=== PATIENT | male | born 1970 | race Two or more races ===

== ENCOUNTER 2024-07-16 19:49 | Emergency (ER) | payer OTHER ==
[~2024-07-16] VITALS: Ht 162.6 cm; Wt 63.7 kg
[2024-07-16 20:37] VITALS: BP 131/81; PULSE 93; RESP 18; TEMP 98.1; O2SAT 95
--- NOTE | 2024-07-16 20:42 | ED.PDOC ---
Musculoskeletal HPI Comments 54 y.o male with PMHx of bipolar disorder, autism, schizophrenia and leg DVT, presents to the ED for a chief complaint of left lower leg swelling that started 3 days ago. Sister who brought patient in reports that patient had a DVT 3-4 years ago, was placed on blood thinners and then taken off them s/p surgical removal of the blood clot. Patient presents with tenderness and swelling. He denies any fever, chills, or recent trauma to leg. Chief Complaint: Lower Extremity Time Seen by MD: 20:30 Reviewed Notes: Nurses Notes, Medications, Allergies Allergies: Coded Allergies: Haloperidol (Verified Allergy, Unknown, 07/16/24) Information Source: Patient Mode of Arrival: Ambulatory Location: Left Extremity Location: Leg Timing: Days (3) Severity: Moderate Able to Move Extremity: Yes Bear Weight: Limited Pain: Moderate Mechanism: None Circumstances: Spontaneous Onset of Symptoms: Spontaneous Symptoms: Swelling, Pain DVT Risk Factors: DVT Associated signs and symptoms: Swelling, Leg pain Past Medical History PAST MEDICAL HISTORY: Schizophrenia Past Medical History (Other): DVT left leg, bipolar and autism Surgical History (Other): DVT removal Family History Family History: Reviewed,noncontributory to illness Social History Smoker: Non-Smoker Alcohol: Denies ETOH Use Drugs: Denies Drug Use Lives In: Home Constitutional: denies: chills, diaphoresis, fatigue, fever, malaise, sweats, weakness, others EENTM: denies: blurred vision, double vision, ear bleeding, ear discharge, ear drainage, ear pain, ear ringing, eye pain, eye redness, hearing loss, mouth pain, mouth swelling, nasal discharge, nose bleeding, nose congestion, nose pain, photophobia, tearing, throat pain, throat swelling, voice changes, others Respiratory: denies: cough, hemoptysis, orthopnea, SOB at rest, shortness of breath, SOB with excertion, stridor, wheezing, others Cardiovascular: denies: chest pain, dizzy spells, diaphoresis, Dyspnea on exertion, edema, irregular heart beat, left arm pain, lightheadedness, palpitations, PND, syncope, others Gastrointestinal: denies: abdomen distended, abdominal pain, blood streaked bowels, constipated, diarrhea, dysphagia, difficulty swallowing, hematemesis, melena, nausea, poor appetite, poor fluid intake, rectal bleeding, rectal pain, vomiting, others Genitourinary: denies: burning, dysuria, flank pain, frequency, hematuria, incontinence, penile discharge, penile sore, pain, testicle pain, testicle swelling, urgency, others Neurological: denies: dizziness, fainting, headache, left sided numbness, left sided weakness, numbness, paresthesia, pre-existing deficit, right sided numbness, right sided weakness, seizure, speech problems, tingling, tremors, weakness, others Musculoskeletal: reports: others (left leg swelling ); denies: back pain, gout, joint pain, joint swelling, muscle pain, muscle stiffness, neck pain Integumetry: denies: bruises, change in color, change in hair/nails, dryness, laceration, lesions, lumps, rash, wounds, others Allergic/Immunocompromised: denies: Difficulty Healing, Frequent Infections, Hives, Itching, others Hematologic/Lymphatic: denies: anemia, blood clots, easy bleeding, easy bruising, swollen glands, others Endocrine: denies: excessive hunger, excessive sweating, excessive thirst, excessive urination, flushing, intolerance to cold, intolerance to heat, unexplained weight gain, unexplained weight loss, others Psychiatric: denies: anxiety, bipolar disorder, depression, hopeless, panic disorder, schizophrenia, sleepless, suicidal, others All Other Systems: Reviewed and Negative Physical Exam General Appearance: No Apparent Distress, Normal HEENT: Normal ENT Inspection, Pharynx Normal, TMs Normal Neck: Full Range of Motion, Non-Tender, Normal, Normal Inspection Respiratory: Chest Non-Tender, Lungs Clear, No Accessory Muscle Use, No Respiratory Distress, Normal Breath Sounds Cardiovascular: No Edema, No JVD, No Murmur, No Gallop, Normal Peripheral Pulses, Regular Rate/Rhythm Breast Exam: Deferred Gastrointestinal: No Organomegaly, Non Tender, No Pulsatile Mass, Normal Bowel Sounds, Soft Genitalia: Deferred Pelvic: Deferred Rectal: Deferred Extremities: Swelling (left lower extremity ), Tender (left lower extremity ), Other (positive Homans sign with erythema ) Musculoskeletal : Apperance: Normal 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 Was a procedure done?: No Differential Diagnosis EXT Differential Diagnosis: Cellulitis, Deep Vein Thrombosis, Sprain, Gout X-Ray, Labs, Meds, VS Vital Signs Date Time Temp Pulse Resp B/P (MAP) Pulse Ox O2 Delivery O2 Flow Rate FiO2 07/16/24 20:37 98.1 93 18 131/81 (98) 95 98.1 X-Ray, Labs, Meds, VS Comment Imaging: X-rays and CT scans were reviewed and interpreted by this provider, imaging shows no fractures and no pathological disease. Pending radiology review. Laboratory: Labs reviewed and interpreted by this provider. No significant abnormalities noted. Patient has prior medical visits reviewed. Med reconciliation performed Vital signs reviewed Time of 1ST Reevaluation: 20:42 Reevaluation 1ST: Unchanged Patient Education/Counseling: Diagnosis, Treatment, Prognosis, Need For Follow Up (Follow up in the emergency department in the next 24-48 hours if symptoms worsen. It was advised to follow up with your primary care doctor in the next 3-4 days for further evaluation.) Family Education/Counseling: Diagnosis, Treatment, Prognosis Departure 1 Departure Time of Disposition: 23:21 Impression: Primary Impression: Cellulitis of left lower extremity Disposition: 01 HOME / SELF CARE / HOMELESS Condition: Fair e-Prescriptions Cephalexin Monohydrate (Cephalexin) 500 Mg Cap 1 CAP PO TID for 7 Days, #21 CAP Prov: RUPESH MONTOYA 07/16/24 Discharged With: Self Critical Care Note Critical Care Time?: No Stability Stability form required: No I personally scribed for RUPESH MONTOYA ([facility]) on 07/16/24 at 20:42. Electronically submitted by Carol Henley ([facility]). RUPESH MONTOYA Jul 16, 2024 20:42
--- NOTE | 2024-07-16 22:02 | DVH ---
Left lower extremity venous duplex Clinical History: leg swelling Comparison: None Technique: Duplex Doppler evaluation of the deep venous system of the left lower extremity from the common femor al vein to the popliteal vein including color Doppler and spectral/pulsed waveform analysis was perfo rmed. Findings: The common femoral vein demonstrates appropriate compressibility and waveform variability. There is compressibility/patency of the great saphenous vein at the proximal thigh. The femoral vein demonstrates appropriate compressibility and waveform variability. The deep femoral vein demonstrates appropriate compressibility and waveform variability. The popliteal vein demonstrates appropriate compressibility and waveform variability. There is normal compressibility at the tibioperoneal trunk. Impression: No evidence of left femoropopliteal venous thrombosis.
[2024-07-16] MEDS ORDERED: CEPH500C PO (23:22)
== END 2024-07-17 02:45 | disposition home or self-care (01) ==
LOC: ER 19:49
DX: L03.116 Cellulitis of left lower limb (principal); F20.9 Schizophrenia, unspecified; F31.9 Bipolar disorder, unspecified; F84.0 Autistic disorder; Z86.718 Personal history of other venous thrombosis and embolism
CPT/HCPCS: 93971

== ENCOUNTER 2024-08-28 15:53 | Inpatient (IN) | payer MEDICARE, OTHER ==
[~2024-08-28] VITALS: Ht 165.1 cm; Wt 70.0 kg
[~2024-08-28 15:53] MED LIST: CEPH500C PO
--- NOTE | 2024-08-28 16:39 | ED.PDOC ---
Pediatric Illness HPI Chief Complaint: Overdose Time Seen by MD: 16:35 Primary Care Provider: NONE Allergies: Coded Allergies: Haloperidol (Verified Allergy, Unknown, 07/16/24) Home Meds Active Scripts Cephalexin Monohydrate (Cephalexin) 500 Mg Cap, 1 CAP PO TID for 7 Days, #21 CAP Prov:RUPESH MONTOYA 07/16/24 Mode of Arrival: EMS Family History Family History: Reviewed,noncontributory to illness Social History Smoking: Non-Smoker Alcohol: Denies ETOH Use Drugs: Denies Drug Use Lives In: Home X-Ray, Labs, Meds, VS Vital Signs Date Time Temp Pulse Resp B/P (MAP) Pulse Ox O2 Delivery O2 Flow Rate FiO2 08/28/24 16:14 98.3 96 18 162/102 (122) 98 98.3 08/28/24 16:04 98.3 96 18 162/102 (122) 98 98.3 Lab Test 08/28/24 16:32 Range/Units White Blood Count Pending Red Blood Count Pending Hemoglobin Pending Hematocrit Pending Mean Corpuscular Volume Pending Mean Corpuscular Hemoglobin Pending Mean Corpuscular Hemoglobin Concent Pending Red Cell Distribution Width Pending Platelet Count Pending Mean Platelet Volume Pending Neutrophils (%) (Auto) Pending Lymphocytes (%) (Auto) Pending Monocytes (%) (Auto) Pending Basophils (%) (Auto) Pending Neutrophils # (Auto) Pending Lymphocytes # (Auto) Pending Monocytes # (Auto) Pending Sodium Level Pending Potassium Level Pending Chloride Level Pending Carbon Dioxide Level Pending Anion Gap Pending Blood Urea Nitrogen Pending Creatinine Pending Glomerular Filtration Rate Calc Pending BUN/Creatinine Ratio Pending Serum Glucose Pending Calcium Level Pending Salicylates Level Pending Acetaminophen Level Pending Plasma/Serum Blood Alcohol Pending Time of 1ST Reevaluation: 17:05 Reevaluation 1ST: Unchanged Patient Education/Counseling: Diagnosis, Treatment Family Education/Counseling: No Family Present Critical Care Note Critical Care Time?: No Stability Stability form required: No I personally scribed for PAMELA BARROW MD ([email or web address]) on 08/28/24 at 16:39. Electronically submitted by Chiqui Amaya ([email or web address]). I personally scribed for PAMELA BARROW MD ([email or web address]) on 08/28/24 at 16:41. Electronically submitted by Chiqui Amaya ([email or web address]). PAMELA BARROW MD Aug 28, 2024 16:39
[2024-08-28 16:42] LABS: Basophils # (auto) 0 10 ^3/uL (0-0.2); Basophils % (auto) 0.1 % (0.0-2.0); Eosinophils # (auto) 0 10 ^3/uL (0-0.8); Eosinophils % (auto) 0.1 % (0.0-7.0); Hematocrit 41.8 % (41.0-53.0); Hemoglobin 14.1 g/dL (13.5-17.5); Lymphocytes # (auto) 0.4 10 ^3/uL (0.4-5.4); Lymphocytes % (auto) 2.3 % (10.0-50.0); Mean Corpuscular Hemoglobin 27.7 pg (28.0-32.0); Mean Corpuscular Hgb Conc. 33.6 g/dL (32.0-36.0); Mean Corpuscular Volume 82.3 fL (80.0-100.0); Monocytes # (auto) 1.1 10 ^3/uL (0-1.3); Neutrophils % (auto) 91.5 % (37.0-80.0); Nucleated Red Blood Cells % 0.2 %; Platelet Count (auto) 289 10^3/uL (140-450); Red Blood Cells 5.09 10^6/uL (4.5-5.90); Red Cell Distribution Width 13.4 % (11.8-14.3); White Blood Cell 18.6 10^3/uL (4.4-10.8)
--- NOTE | 2024-08-28 16:44 | ED.PDOC ---
Psychiatric HPI Comments 54 y/o M with PMHx of schizophrenia, KATHYA, presents to the ED for CC of overdose. EMS reports, patient is coming from home s/p suicidal attempt through overdose on Prozac 40mg x2 tablets, Lisinopril 5mg x4 tablets, BuSpar 10mg X5 tablets, Xanax x1 tablet, and Risperdal 50mg x1 tablet. EMS relays, patient had a witnessed syncopal episode following ingestion resulting in him falling forward and hitting his face. Upon arrival to the ED, patient has visible abrasions to nose and forehead. Patient comments, on previous suicidal attempts in the past. Patient denies LOC, auditory hallucinations, visual hallucinations, or homicidal ideation. No other symptoms or modifying factors present at this time. Chief Complaint: Overdose Time Seen by MD: 16:35 Primary Care Provider: NONE Reviewed Notes: Nurses Notes, Medications, Allergies Mode of Arrival: EMS Severity: Unable to Care for Self Severity of Pain: None Severity of Mental Status: Moderate Severity of Symptoms: Moderate Timing: Minutes Duration: Since onset Prehospital treatment: None Presents with: Suicidal Ideation Attempt: Ingestion Ingestion: Multiple Circumstance: None Current substance abuse: Other (medications) Stressors: None History of: Schizophrenia, Suicidal Attempt Quality: None Associated signs and symptoms: None Past Medical History PAST MEDICAL HISTORY: Schizophrenia Family History Family History: Reviewed,noncontributory to illness Social History Smoker: Non-Smoker Alcohol: Denies ETOH Use Drugs: Denies Drug Use Lives In: Home Constitutional: denies: chills, diaphoresis, fatigue, fever, malaise, sweats, weakness, others EENTM: denies: blurred vision, double vision, ear bleeding, ear discharge, ear drainage, ear pain, ear ringing, eye pain, eye redness, hearing loss, mouth pain, mouth swelling, nasal discharge, nose bleeding, nose congestion, nose pain, photophobia, tearing, throat pain, throat swelling, voice changes, others Respiratory: denies: cough, hemoptysis, orthopnea, SOB at rest, shortness of breath, SOB with excertion, stridor, wheezing, others Cardiovascular: denies: chest pain, dizzy spells, diaphoresis, Dyspnea on exertion, edema, irregular heart beat, left arm pain, lightheadedness, palpitations, PND, syncope, others Gastrointestinal: denies: abdomen distended, abdominal pain, blood streaked bowels, constipated, diarrhea, dysphagia, difficulty swallowing, hematemesis, melena, nausea, poor appetite, poor fluid intake, rectal bleeding, rectal pain, vomiting, others Genitourinary: denies: burning, dysuria, flank pain, frequency, hematuria, incontinence, penile discharge, penile sore, pain, testicle pain, testicle swel ling, urgency, others Neurological: denies: dizziness, fainting, headache, left sided numbness, left sided weakness, numbness, paresthesia, pre-existing deficit, right sided numbness, right sided weakness, seizure, speech problems, tingling, tremors, weakness, others Musculoskeletal: denies: back pain, gout, joint pain, joint swelling, muscle pain, muscle stiffness, neck pain, others Integumetry: denies: bruises, change in color, change in hair/nails, dryness, laceration, lesions, lumps, rash, wounds, others Allergic/Immunocompromised: denies: Difficulty Healing, Frequent Infections, Hives, Itching, others Hematologic/Lymphatic: denies: anemia, blood clots, easy bleeding, easy bruising, swollen glands, others Endocrine: denies: excessive hunger, excessive sweating, excessive thirst, excessive urination, flushing, intolerance to cold, intolerance to heat, unexplained weight gain, unexplained weight loss, others Psychiatric: reports: suicidal; denies: anxiety, bipolar disorder, depression, hopeless, panic disorder, schizophrenia, sleepless, others All Other Systems: Reviewed and Negative Physical Exam General Appearance: No Apparent Distress, Normal HEENT: Normal ENT Inspection, Pharynx Normal Neck: Full Range of Motion, Non-Tender, Normal, Normal Inspection Respiratory: Chest Non-Tender, Lungs Clear, No Accessory Muscle Use, No Respiratory Distress, Normal Breath Sounds Cardiovascular: No Edema, No Murmur, No Gallop, Normal Peripheral Pulses, Regular Rate/Rhythm Breast Exam: Deferred Gastrointestinal: No Organomegaly, Non Tender, No Pulsatile Mass, Normal Bowel Sounds, Soft Genitalia: Deferred Pelvic: Deferred Rectal: Deferred Extremities: No calf tenderness, Normal capillary refill, Normal inspection, Normal range of motion, Non-tender, No pedal edema Musculoskeletal : Apperance: Normal 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 Was a procedure done?: No Psych Differential Dx Psych. Differential Dx: Schizoprenia, Suicidal Suicidal Differential Dx: Anxiety, Bipolar Disorder, Depression X-Ray, Labs, Meds, VS Vital Signs Date Time Temp Pulse Resp B/P (MAP) Pulse Ox O2 Delivery O2 Flow Rate FiO2 08/28/24 16:14 98.3 96 18 162/102 (122) 98 98.3 08/28/24 16:04 83 08/28/24 16:04 98.3 96 18 162/102 (122) 98 98.3 Lab Test 08/28/24 16:32 Range/Units White Blood Count 18.6 H 4.4-10.8 10^3/uL Red Blood Count 5.09 4.5-5.90 10^6/uL Hemoglobin 14.1 13.5-17.5 g/dL Hematocrit 41.8 41.0-53.0 % Mean Corpuscular Volume 82.3 80.0-100.0 fL Mean Corpuscular Hemoglobin 27.7 L 28.0-32.0 pg Mean Corpuscular Hemoglobin Concent 33.6 32.0-36.0 g/dL Red Cell Distribution Width 13.4 11.8-14.3 % Platelet Count 289 140-450 10^3/uL Mean Platelet Volume 7.2 6.9-10.8 fL Neutrophils (%) (Auto) 91.5 H 37.0-80.0 % Lymphocytes (%) (Auto) 2.3 L 10.0-50.0 % Monocytes (%) (Auto) 6.0 0.0-12.0 % Eosinophils (%) (Auto) 0.1 0.0-7.0 % Basophils (%) (Auto) 0.1 0.0-2.0 % Neutrophils # (Auto) 17.0 H 1.6-8.6 10 ^3/uL Lymphocytes # (Auto) 0.4 0.4-5.4 10 ^3/uL Monocytes # (Auto) 1.1 0-1.3 10 ^3/uL Eosinophils # (Auto) 0 0-0.8 10 ^3/uL Basophils # (Auto) 0 0-0.2 10 ^3/uL Nucleated Red Blood Cells 0.2 % Sodium Level 150 H 136-145 mmol/L Potassium Level 3.7 3.5-5.1 mmol/L Chloride Level 111 H 98-107 mmol/L Carbon Dioxide Level 31 20-31 mmol/L Anion Gap 8 5-15 Blood Urea Nitrogen 18 9-23 mg/dL Creatinine 1.19 0.700-1.30 mg/dL Glomerular Filtration Rate Calc 73 >90 mL/min BUN/Creatinine Ratio 15.1 10.0-20.0 Serum Glucose 105 74-106 mg/dL Calcium Level 10.8 H 8.7-10.4 mg/dL Salicylates Level < 3.0 -30 mg/dL Acetaminophen Level < 2.0 L 10.0-20.0 UG/ML Plasma/Serum Blood Alcohol 3.2 <10 mg/dL Time of 1ST Reevaluation: 17:05 Reevaluation 1ST: Unchanged Patient Education/Counseling: Diagnosis, Treatment Family Education/Counseling: No Family Present Departure 1 Departure Time of Disposition: 17:39 (Patient with syncopal episode following medication overdose with a suicide attempt. After discussing with poison control and be in the best interest the patient to be admitted medically until once cleared after 24 hours. We will have patient for further workup and expert consultation) Impression: Primary Impression: Syncope and collapse Additional Impressions: Deliberate medication overdose Qualified Codes: T50.902A - Poisoning by unspecified drugs, medicaments and biological substances, intentional self-harm, initial encounter Suicide ideation Schizophrenia Qualified Codes: F20.9 - Schizophrenia, unspecified Disposition: 09 ADMITTED INPATIENT Admit to: Med Surg Condition: Guarded Critical Care Note Critical Care Time?: Yes Critical care comment: Overdose Authorized and Performed by: Pamela Pearson MD Total critical care time: Approximately 43 minutes Due to a high probability of clinically significant, life threatening deterioration, the patient required my highest level of preparedness to intervene emergently and I personally spent this critical care time directly and personally managing the patient. This critical care time included obtaining a history; examining the patient; pulse oximetry; ordering and review of studies; arranging urgent treatment with development of a management plan; evaluation of patient's response to treatment; frequent reassessment; and, discussions with other providers. This critical care time was performed to assess and manage the high probability of imminent, life-threatening deterioration that could result in multi-organ failure. It was exclusive of separately billable procedures and treating other patients and teaching time. Please see my other sections and the rest of the note for further information on patient assessment and treatment. Stability Stability form required: No Heart Score Heart Score: Heart Score Response (Comments) Value History N/A 0 EKG N/A 0 Age N/A 0 Risk Factors N/A 0 Troponin N/A 0 Total 0 I personally scribed for PAMELA PEARSON MD ([email or web address]) on 08/28/24 at 16:44. Electronically submitted by Chiqui Amaya ([email or web address]). PAMELA PEARSON MD Aug 28, 2024 16:44
[2024-08-28 16:48] LABS: Potassium 3.7 mmol/L (3.5-5.1)
[2024-08-28 16:49] LABS: Anion Gap 8 (5-15); Carbon Dioxide 31 mmol/L (20-31)
[2024-08-28 16:55] LABS: BUN/Creatinine Ratio 15.1 (10.0-20.0); Blood Alcohol 3.2 mg/dL (<10); Blood Urea Nitrogen 18 mg/dL (9-23); Glucose 105 mg/dL (74-106)
[2024-08-28 16:57] LABS: Sodium 150 mmol/L (136-145)
[2024-08-28 16:58] LABS: Calcium 10.8 mg/dL (8.7-10.4); Chloride 111 mmol/L (98-107)
[2024-08-28 16:59] LABS: Acetaminophen < 2.0 UG/ML (10.0-20.0); Salicylate < 3.0 mg/dL (-30)
--- NOTE | 2024-08-28 18:05 | DVH ---
CHEST RADIOGRAPH Indication: syncope Technique: Single frontal view of the chest was obtained COMPARISON: None FINDINGS: Lines and Tubes: None Lungs: Clear Pleura: No effusion. No pneumothorax. Cardiomediastinal contours: Cardiomegaly Bones: Unremarkable IMPRESSION: No acute disease.
--- NOTE | 2024-08-28 18:08 | DVH ---
EXAM: CT HEAD WITHOUT CONTRAST INDICATION: syncope TECHNIQUE: CT of the head without intravenous contrast. Radiation Dose : 1. Head: CT Dose: CTDI volume is 57 mGy. Dose-length product is 1012 mGy*cm The dose indicators for CT are the volume Computed Tomography (CT) Dose Index (CTDIvol) and the Dose Length Product (DLP), and are measured in units of mGy and mGy-cm, respectively. These indicators are not patient dose, but values generated from the CT scanner acquisition factors. The report includes radiation exposure data for exposures received during this examination. COMPARISON: None FINDINGS: There is no evidence of acute intracranial hemorrhage, extra-axial collection, mass effect, midline s hift, herniation or hydrocephalus. The ventricles, sulci and cisterns are age appropriate. The corona-white differentiation is intact. Patchy periventricular and subcortical white matter hypoattenuation is nonspecific but may be related to small vessel ischemic disease. The visualized paranasal sinuses and mastoid air cells are clear. The surrounding soft tissues and osseous structures are unremarkable. IMPRESSION: 1. No acute intracranial abnormality. Radiation optimization: All CT scans at this facility use at least one of these dose optimization chadd hniques: automated exposure control mA and/or kV adjustment per patient size (includes targeted exam s where dose is matched to clinical indication) or iterative reconstruction.
[2024-08-28] MEDS: SODIUM CHLORIDE 0.9% 1,000 ML IV ONE (18:13)
[2024-08-28 18:31] VITALS: PULSE 83; RESP 17; O2SAT 96
[2024-08-28 19:52] LABS: Urine Bacteria FEW /hpf (None Seen); Urine Blood 3+ /uL (Negative); Urine Clarity Clear (Clear); Urine Color Light-Yellow (Yellow); Urine Protein, UAD TRACE (Negative); Urine Specific Gravity 1.015 (1.001-1.035); Urine Sperm PRESENT /hpf (None Seen); Urine Squamous Epithelial Cell FEW /hpf (<5); Urine Urobilinogen Normal (Negative); Urine WBC 1 /HPF (0-3)
[2024-08-28 20:04] LABS: Amphetamine Screen, Urine Neg (NEGATIVE); Barbiturate Scree,Urine Neg (NEGATIVE); Benzodiazephine Screen, Urine Neg (NEGATIVE); Cannabinoid Screen, Urine Neg (NEGATIVE); Cocaine Screen, Urine Neg (NEGATIVE); Opiate Scree,Urine Neg (NEGATIVE); Phencyclidine Screen, Urine Neg (NEGATIVE)
[2024-08-28 20:30] VITALS: PULSE 77; RESP 14; O2SAT 93
[2024-08-28] MEDS: D5W/SOD CHL 0.45% 1,000 ML IV SCH (21:32)
[2024-08-28 21:57] LABS: Albumin 4.1 g/dL (3.2-4.8); Alkaline Phosphatase 78 U/L (46-116); Anion Gap 9 (5-15); BUN/Creatinine Ratio 15.4 (10.0-20.0); Bilirubin, Total 0.5 mg/dL (0.2-1.0); Blood Urea Nitrogen 18 mg/dL (9-23); Calcium 10.1 mg/dL (8.7-10.4); Carbon Dioxide 30 mmol/L (20-31)
[2024-08-28 21:59] LABS: Alanine Aminotransferase 57 U/L (7-40); Aspartate Aminotransferase 83 U/L (13-40); Chloride 111 mmol/L (98-107); Glucose 118 mg/dL (74-106); Potassium 3.4 mmol/L (3.5-5.1); Sodium 150 mmol/L (136-145)
[2024-08-29] VITALS (15 sets, daily range): BP systolic 149–174; BP diastolic 92–115; PULSE 65–89; RESP 13–24; TEMP 98.2–98.6; O2SAT 93–98
[2024-08-29] MEDS: POTASSIUM EFFERVESENT TAB 25 MEQ PO ONE (01:57)
[2024-08-29] MEDS: KETOROLAC TROMETH 30 MG/ML 1ML VIAL IV ONE ×2 (01:57→05:17)
--- NOTE | 2024-08-29 04:16 | DVHHP2 ---
Admitting Diagnosis: OD, suicidal attempt, Hypernatremia, syncope History of Present Illness History Source: Patient Exam Limitations: No limitations HPI Mr. Declan Ayala is a 54 year old male with a history of schizophrenia who presents with a chief complaint of overdose with suicidal attempt through overdose, due to an argument he had with his sister, patient reported taking Prozac 40mg x2 tablets, Lisinopril 5mg x4 tablets, BuSpar 10mg X5 tablets, Xanax x1 tablet, and Risperdal 50mg x1 tablet. EMS reported patient had a witnessed syncopal episode following ingestion resulting in him falling forward and hitting his face with associated abrasions to bilateral upper and lower extremities and facial abrasions. Patient denies LOC, auditory hallucinations, visual hallucinations, or homicidal ideation. He does endorse he continues to have suicidal ideation. No other symptoms or modifying factors present at this time. Patient admitted for further evaluation and close monitoring. Home Meds Active Scripts Cephalexin Monohydrate (Cephalexin) 500 Mg Cap, 1 CAP PO TID for 7 Days, #21 CAP Prov:RUPESH MONTOYA 07/16/24 Past Medical History Cardiac: No pertinent Hx Pulmonary: No pertinent Hx Central Nervous System: No pertinent Hx GI: No pertinent Hx Hemotology/Oncology: No pertinent Hx Hepatobiliary: No pertinent Hx Psychiatric: Schizophrenia, Other (suicidal attempts in past) Musculoskeletal: No pertinent Hx Rheumotologic: No pertinent Hx Infectious Disease: No peritnent Hx ENT: No pertinent Hx Renal/: No pertinent Hx Endocrine: No pertinent Hx Dermatology: No pertinent Hx Smoker: No Hx (Negative) Alocohol: None Drugs: None Lives with: With family Domestic Violence: Neg Review of Systems Psychiatric: Other (suicidal ideation) All Other Systems generalized body pain from syncopal fall H&P Exam Vital Signs Vital Signs Date Time Temp Pulse Resp B/P (MAP) Pulse Ox O2 Delivery O2 Flow Rate FiO2 08/29/24 04:00 67 08/28/24 22:34 13 162/106 (124) 96 08/28/24 20:30 97.9 97.9 08/28/24 18:31 Room Air* 0 21 General Appeara: Well developed, Well nourished, Normal Appearance Head Exam: Other (frontal abrasion) Neck Exam: Normal inspection, Non-tender, Normal alignment Eye Exam: bilateral eye Normal inspection, bilateral eye PERRL, bilateral eye EOMI Ear Exam: bilateral ear Auricle normal Nasal Exam: Normal inspection, Dried blood (nasal abrasion) Mouth: Normal Inspection Pulmonary/Respiratory: Normal inspection, Normal breath sounds, Chest non- tender, Lungs clear Cardiovascular/Chest: Normal inspection, Regular rate, Normal Rhythm Peripheral Pulses: 2+ dorsalis pedis (R), 2+ dorsalis pedis (L), 2+ Radial (R), 2+ Radial (L) Abdominal Exam: Normal bowel sounds, Soft, No tenderness Rectal Exam: Deferred Back Exam: Normal inspection Elbow/Forearm Exam: Abrasions Legs: bilateral leg abrasions Knees: bilateral knee other (abrasions) 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 Exam: Normal hearing, Normal speech, PERRL Motor/Sensory: Normal sensory function, Normal motor function Neuro/Mental St: Alert, Oriented Eye contact/ Speech: Cooperative, Good eye contact, Normal speech Thoughts/Psych: Other (suicidal ideation) Skin Exam: Other (multiple abrasions ) Wounds facial abrasions s/p syncopal fall, bilateral upper and lower extremity abrasions Labs/Xrays Labs Test 08/28/24 21:08 08/28/24 19:30 08/28/24 16:32 Range/Units Sodium Level 150 H 136-145 mmol/L Potassium Level 3.4 L 3.5-5.1 mmol/L Chloride Level 111 H 98-107 mmol/L Carbon Dioxide Level 30 20-31 mmol/L Anion Gap 9 5-15 Blood Urea Nitrogen 18 9-23 mg/dL Creatinine 1.17 0.700-1.30 mg/dL Glomerular Filtration Rate Calc 75 >90 mL/min BUN/Creatinine Ratio 15.4 10.0-20.0 Serum Glucose 118 H 74-106 mg/dL Calcium Level 10.1 8.7-10.4 mg/dL Magnesium Level 2.0 1.6-2.6 mg/dL Total Bilirubin 0.5 0.2-1.0 mg/dL Aspartate Amino Transferase (AST) 83 H 13-40 U/L Alanine Aminotransferase (ALT) 57 H 7-40 U/L Alkaline Phosphatase 78 46-116 U/L Total Protein 7.0 5.7-8.2 g/dL Albumin 4.1 3.2-4.8 g/dL Urine Color Light-yellow Yellow Urine Clarity Clear Clear Urine pH 7.0 5.0-9.0 Urine Specific [place] 1.015 1.001-1.035 Urine Protein Trace H Negative Urine Ketones Negative Negative Urine Blood 3+ H Negative /uL Urine Nitrite Negative Negative Urine Bilirubin Negative Negative Urine Urobilinogen Normal Negative mg/dL Urine Leukocyte Esterase Negative Negative /uL Urine RBC 1 0 - 3 /hpf Urine Microscopic WBC 1 0-3 /HPF Urine Squamous Epithelial Cells Few <5 /hpf Urine Bacteria Few H None Seen /hpf Urine Sperm Present None Seen /hpf Urine Glucose Normal Normal mg/dL Urine Opiates Screen Neg NEGATIVE Urine Fentanyl Screen Neg NEGATIVE Urine Barbiturates Screen Neg NEGATIVE Urine Phencyclidine Screen Neg NEGATIVE Urine Amphetamines Screen Neg NEGATIVE Urine Benzodiazepines Screen Neg NEGATIVE Urine Cocaine Screen Neg NEGATIVE Urine Cannabinoids Screen Neg NEGATIVE White Blood Count 18.6 H 4.4-10.8 10^3/uL Red Blood Count 5.09 4.5-5.90 10^6/uL Hemoglobin 14.1 13.5-17.5 g/dL Hematocrit 41.8 41.0-53.0 % Mean Corpuscular Volume 82.3 80.0-100.0 fL Mean Corpuscular Hemoglobin 27.7 L 28.0-32.0 pg Mean Corpuscular Hemoglobin Concent 33.6 32.0-36.0 g/dL Red Cell Distribution Width 13.4 11.8-14.3 % Platelet Count 289 140-450 10^3/uL Mean Platelet Volume 7.2 6.9-10.8 fL Neutrophils (%) (Auto) 91.5 H 37.0-80.0 % Lymphocytes (%) (Auto) 2.3 L 10.0-50.0 % Monocytes (%) (Auto) 6.0 0.0-12.0 % Eosinophils (%) (Auto) 0.1 0.0-7.0 % Basophils (%) (Auto) 0.1 0.0-2.0 % Neutrophils # (Auto) 17.0 H 1.6-8.6 10 ^3/uL Lymphocytes # (Auto) 0.4 0.4-5.4 10 ^3/uL Monocytes # (Auto) 1.1 0-1.3 10 ^3/uL Eosinophils # (Auto) 0 0-0.8 10 ^3/uL Basophils # (Auto) 0 0-0.2 10 ^3/uL Nucleated Red Blood Cells 0.2 % Salicylates Level < 3.0 -30 mg/dL Acetaminophen Level < 2.0 L 10.0-20.0 UG/ML Plasma/Serum Blood Alcohol 3.2 <10 mg/dL Assessment/Plan Problem List: (1) Deliberate medication overdose (2) Suicide ideation (3) Syncope and collapse (4) Schizophrenia Plan This is a 54 yo male with history of SI, Schizophrenia who presents to the hospital status post intentional overdose with suicidal attempt, syncopal episode. Poison control was called by ED and recommendation for 24 hour close monitoring. 1. Intentional Overdose 2. Suicidal ideation with attempt 3. Syncopal episode 4. Hypernatremia 5. Schizophrenia Plan Admit [facility] Tele Psych consultation, safety analyst at bedside 1:1 Serial BMP's, Mg level, serial EKG's Nephrology consultation, IVF D5 1/2 NS Cardiology consultation, 2D echocardiogram Discussed all above with patient who verbalizes agreement and understanding of care plan. All questions were answered. Discussed with supervising MD. Plan discussed with: Patient, Other Code Visit Code Visit Total Time (mins): 45 Additional Comments Additional Comments Additional Comments Patient's chart is reviewed and discussed with the nurse practitioner. Patient seen evaluated by [employer] ADMINISTRATOR overnight. This morning I was notified by on-call [employer] rn case manager that patient is not with the [facility] insurance. Therefore patient care is transferred to [facility] given they will be taking care of the patient. Therefore patient carries transferred to them and discussed with Dr. Feliz. IMANI THOMASON Aug 29, 2024 04:16 SHUN PARKINSON MD Aug 29, 2024 11:29
[2024-08-29 05:43] LABS: Basophils # (auto) 0 10 ^3/uL (0-0.2); Basophils % (auto) 0.2 % (0.0-2.0); Eosinophils # (auto) 0 10 ^3/uL (0-0.8); Eosinophils % (auto) 0.1 % (0.0-7.0); Hemoglobin 14.1 g/dL (13.5-17.5); Lymphocytes # (auto) 1.4 10 ^3/uL (0.4-5.4); Lymphocytes % (auto) 10.6 % (10.0-50.0); Mean Corpuscular Hemoglobin 27.8 pg (28.0-32.0); Mean Corpuscular Hgb Conc. 33.7 g/dL (32.0-36.0); Mean Corpuscular Volume 82.5 fL (80.0-100.0); Monocytes % (auto) 7.9 % (0.0-12.0); Neutrophils # (auto) 10.5 10 ^3/uL (1.6-8.6); Neutrophils % (auto) 81.2 % (37.0-80.0); Platelet Count (auto) 308 10^3/uL (140-450); Red Blood Cells 5.09 10^6/uL (4.5-5.90); Red Cell Distribution Width 13.7 % (11.8-14.3)
[2024-08-29 05:50] LABS: Carbon Dioxide 28 mmol/L (20-31); Chloride 105 mmol/L (98-107); Potassium 3.9 mmol/L (3.5-5.1); Sodium 142 mmol/L (136-145)
[2024-08-29 05:51] LABS: Anion Gap 9 (5-15); Calcium 9.5 mg/dL (8.7-10.4)
[2024-08-29 05:56] LABS: BUN/Creatinine Ratio 13.8 (10.0-20.0); Blood Urea Nitrogen 12 mg/dL (9-23); Glucose 101 mg/dL (74-106)
--- NOTE | 2024-08-29 06:46 | ECG ---
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
--- NOTE | 2024-08-29 09:35 | DVHINCON2 ---
Date Seen: Aug 29, 2024 Referring Physician SASCHA Moyer Reason for Consultation Prolonged QTc, s/p OD, Syncope History of Present Illness A 54-year-old male patient who presents to the emergency room status post medication overdose. The patient reports that on the day of emergency room arr ival, he had gotten into an argument with his sister earlier in the day over a cell phone. He reports that the argument became so heated and he became upset, that he began to have suicidal ideations. He acted upon this thoughts and admits to taking at least five pills each of the following medications: Lisinopril, Prozac, BuSpar, and Geodon. He states that shortly thereafter he went outside to get a package from his front yard and began to feel dizzy and the next thing he remembers is waking up on the ground. He reports crawling back inside of the house where he was able to regain some strength to stand up and proceeded to fall another 3 times, without losing consciousness. When the patient arrived to the emergency room, poison control was called and r ecommendations were followed by ER physician. Initial twelve lead electrocardiogram reveals normal sinus rhythm with left ventricular hypertrophy and prolonged QTc interval at 512. The patient denies any cardiac symptoms. Significant past medical history includes hypertension, dyslipidemia, bipolar, depression, schizophrenia, autism, and benign prostatic hyperplasia. Past Medical History Past medical history reviewed. No other significant than mentioned above. Past Surgical History Denies any previous surgeries Family History Family history reviewed. Social History Patient reports that he used to vape, quit approximately one year ago Denies any illicit drug use Denies any alcohol use Allergies: Coded Allergies: Haloperidol (Verified Allergy, Unknown, 07/16/24) Uncoded Allergies: red dye (Allergy, Intermediate, RASH, 08/29/24) PER SISTER MARTÍNEZ Home Meds Active Scripts Cephalexin Monohydrate (Cephalexin) 500 Mg Cap, 1 CAP PO TID for 7 Days, #21 CAP Prov:RUPESH MONTOYA 07/16/24 Home Meds Home medications reviewed. Current Medications Current Medications Medications (Trade) Dose Ordered Sig/Jacklyn Route PRN Reason Start Time Stop Time Status Last Admin Dextrose/Sodium Chloride 1,000 ml @ 125 mls/hr Q8H IV 08/28/24 20:45 08/29/24 04:45 Review of Systems Constitutional: Generalized weakness Ears, Nose, & Throat: No symptom reported Eyes: No symptom reported Neurological: Syncope Pulmonary/Respiratory: No symptoms reported Cardiovascular: No symptom reported Gastrointestinal: No symptom reported Genitourinary: No symptom reported Musculoskeletal: No symptom reported Skin: No symptom reported Psychiatric: No symptom reported Endocrine: No symptom reported Hematologic/Lymphatic: No symptom reported Vital Signs Vital Signs Date Time Temp Pulse Resp B/P (MAP) Pulse Ox O2 Delivery O2 Flow Rate FiO2 08/29/24 08:00 81 08/29/24 06:30 13 162/102 (122) 95 08/28/24 20:30 97.9 97.9 08/28/24 20:30 Room Air* 0 21 Physical Exam General Appearance: Cooperative. Well-developed. Well-nourished. No acute distress. Pulmonary/Respiratory: Clear, bilateral breaths sounds. Cardiovascular/Chest: Regular rate and rhythm. Peripheral Pulses: 2+ Radial (R). 2+ Radial (L). 2+ Pedal (R). 2+ Pedal (L) Abdominal Exam: Normal bowel sounds. Ankle Exam: Negative ankle edema Lower extremities: Negative lower extremity edema Neuro/Mental Status: A/OX4, coherent. Thoughts/Psych: Normal thought pattern. Appropriate mood and affect. Good judgment and insight. Appearance: No acute distress. Skin Exam: Multiple abrasions to right forehead, lip, bilateral arms and bilateral knee use Labs/Diagnostic Data Labs Test 08/29/24 04:55 08/28/24 21:08 08/28/24 19:30 08/28/24 16:32 Range/Units White Blood Count 13.0 #H 4.4-10.8 10^3/uL Red Blood Count 5.09 4.5-5.90 10^6/uL Hemoglobin 14.1 13.5-17.5 g/dL Hematocrit 42.0 41.0-53.0 % Mean Corpuscular Volume 82.5 80.0-100.0 fL Mean Corpuscular Hemoglobin 27.8 L 28.0-32.0 pg Mean Corpuscular Hemoglobin Concent 33.7 32.0-36.0 g/dL Red Cell Distribution Width 13.7 11.8-14.3 % Platelet Count 308 140-450 10^3/uL Mean Platelet Volume 7.6 6.9-10.8 fL Neutrophils (%) (Auto) 81.2 H 37.0-80.0 % Lymphocytes (%) (Auto) 10.6 10.0-50.0 % Monocytes (%) (Auto) 7.9 0.0-12.0 % Eosinophils (%) (Auto) 0.1 0.0-7.0 % Basophils (%) (Auto) 0.2 0.0-2.0 % Neutrophils # (Auto) 10.5 H 1.6-8.6 10 ^3/uL Lymphocytes # (Auto) 1.4 0.4-5.4 10 ^3/uL Monocytes # (Auto) 1.0 0-1.3 10 ^3/uL Eosinophils # (Auto) 0 0-0.8 10 ^3/uL Basophils # (Auto) 0 0-0.2 10 ^3/uL Nucleated Red Blood Cells 0.0 % Sodium Level 142 # 136-145 mmol/L Potassium Level 3.9 3.5-5.1 mmol/L Chloride Level 105 98-107 mmol/L Carbon Dioxide Level 28 20-31 mmol/L Anion Gap 9 5-15 Blood Urea Nitrogen 12 9-23 mg/dL Creatinine 0.87 0.700-1.30 mg/dL Glomerular Filtration Rate Calc 103 >90 mL/min BUN/Creatinine Ratio 13.8 10.0-20.0 Serum Glucose 101 74-106 mg/dL Calcium Level 9.5 8.7-10.4 mg/dL Magnesium Level 2.0 1.6-2.6 mg/dL Total Bilirubin 0.5 0.2-1.0 mg/dL Aspartate Amino Transferase (AST) 83 H 13-40 U/L Alanine Aminotransferase (ALT) 57 H 7-40 U/L Alkaline Phosphatase 78 46-116 U/L Total Protein 7.0 5.7-8.2 g/dL Albumin 4.1 3.2-4.8 g/dL Urine Color Light-yellow Yellow Urine Clarity Clear Clear Urine pH 7.0 5.0-9.0 Urine Specific [place] 1.015 1.001-1.035 Urine Protein Trace H Negative Urine Ketones Negative Negative Urine Blood 3+ H Negative /uL Urine Nitrite Negative Negative Urine Bilirubin Negative Negative Urine Urobilinogen Normal Negative mg/dL Urine Leukocyte Esterase Negative Negative /uL Urine RBC 1 0 - 3 /hpf Urine Microscopic WBC 1 0-3 /HPF Urine Squamous Epithelial Cells Few <5 /hpf Urine Bacteria Few H None Seen /hpf Urine Sperm Present None Seen /hpf Urine Glucose Normal Normal mg/dL Urine Opiates Screen Neg NEGATIVE Urine Fentanyl Screen Neg NEGATIVE Urine Barbiturates Screen Neg NEGATIVE Urine Phencyclidine Screen Neg NEGATIVE Urine Amphetamines Screen Neg NEGATIVE Urine Benzodiazepines Screen Neg NEGATIVE Urine Cocaine Screen Neg NEGATIVE Urine Cannabinoids Screen Neg NEGATIVE Salicylates Level < 3.0 -30 mg/dL Acetaminophen Level < 2.0 L 10.0-20.0 UG/ML Plasma/Serum Blood Alcohol 3.2 <10 mg/dL Assessment Syncope, rule out cardiac etiology Prolonged QTc interval Rule out structural heart disease Hypertension Dyslipidemia Suicidal attempt with medication overdose Schizophrenia Bipolar Autism Benign prostatic hyperplasia Plan/Recommendation We will continue with the following plan/recommendations (Dr. Machado): * Transthoracic echocardiogram to evaluate cardiac function * Repeat 12 lead electrocardiogram reveals borderline prolonged QTc, now 500 * Avoid medications that will prolong QT interval, as this places the patient at risk for torsades de pointes * Blood pressure control * Close telemetry monitoring---monitor for any cardiac arrhythmias * Bilateral carotid ultrasound * Orthostatic vital signs Thank you for allowing us to care for this patient. Please call with any questions or concerns. Critical care time spent: 44 minutes This medical document was created using an electronic medical record system with voice recognition software and computerized dictation system. Although this document has been carefully reviewed, there might still be some phonetic and typographical errors. Occasional wrong-word or ``sound-alike substitutions may have occurred due to the inherent limitations of voice recognition software. These areas are purely typographical due to imperfections of the software programs and do not reflect any compromise in the patient's medical care. Please read the chart carefully and recognize, using context, where these substitutions have occurred. Plan discussed with: Patient NYHA Physical activity limitations: NA Date of Service: Aug 29, 2024 Billing Provider: SILVER BRIGHT Cardiology Common Codes: 78118-CVTOSNE INP/OBS CARE (High) Cardiology Consultation Codes: 34572-LEHEYUVLT CONSULT <45MIN SILVER BRIGHT Aug 29, 2024 09:35
--- NOTE | 2024-08-29 09:40 | ECG ---
[facility] Test Date: 2024-08-29 Test Time: 09:39:18 Pat Name: EMILIANO LIGHT Department: ED Room: [address] [place] [address] A Gender: M Library Specialist: FELIPE : 1970 Requested By: IMANI THOMASON Order Number: [id number] Reading MD: Norbert Machado Measurements Intervals [place] Rate: 73 P: 24 MI: 142 QRS: 26 QRSD: 103 T: 18 QT: 453 QTc: 500 Interpretive Statements Sinus rhythm Atrial premature complex Left ventricular hypertrophy Borderline prolonged QT interval Electronically Signed On 08-29-2024 21:16:17 PDT by Norbert Machado Please click the below link to view image of tracing.
[2024-08-29 10:24] LABS: Magnesium 1.9 mg/dL (1.6-2.6)
--- NOTE | 2024-08-29 11:19 | DVH ---
Indication: syncope Technique: Real-time ultrasound images of the neck vessels with corona-scale, color and wave Doppler we re obtained. Comparison: None Findings: Mild bilateral atherosclerotic plaque. The following peak systolic velocities were recorded in cm/sec: Right internal carotid: 78 Right common carotid: 86 Right external carotid: 149 Right internal/common carotid ratio: 0.9 Left internal carotid: 83 Left common carotid: 104 Left external carotid: 99 Left internal/common carotid ratio: 0.8 Right vertebral artery: Patent with normal antegrade direction of flow. Left vertebral artery: Patent with normal antegrade direction of flow. Impression: 1. No hemodynamically significant stenosis by velocity criteria of the internal carotid arteries. 2. Elevated right ECA velocity which likely represents hemodynamically significant stenosis.
[2024-08-29] MEDS: hydrALAZINE HCL 20 MG/ML VL IV PRN (13:13)
[2024-08-29 13:39] LABS: Chloride 103 mmol/L (98-107); Potassium 3.9 mmol/L (3.5-5.1); Sodium 141 mmol/L (136-145)
[2024-08-29 13:40] LABS: Anion Gap 8 (5-15); Carbon Dioxide 30 mmol/L (20-31)
[2024-08-29 13:43] LABS: Calcium 10.9 mg/dL (8.7-10.4)
[2024-08-29 13:45] LABS: BUN/Creatinine Ratio 13.4 (10.0-20.0); Blood Urea Nitrogen 13 mg/dL (9-23)
[2024-08-29 13:47] LABS: Glucose 113 mg/dL (74-106)
--- NOTE | 2024-08-29 15:28 | DVHPN2 ---
Subjective Patient reports having chest pain, worse with inspiration. Reviewed: Care Plan, H&P, Labs, Medications Changes from previous H/P or p: No Changes General: Per HPI Objective Vitals Vital Signs Date Time Temp Pulse Resp B/P (MAP) Pulse Ox O2 Delivery O2 Flow Rate FiO2 08/29/24 13:36 98.6 170/108 (128) 98.6 08/29/24 12:00 81 08/29/24 10:00 17 96 08/28/24 20:30 Room Air* 0 21 Intake/Output Intake and Output 08/29/24 07:00 Intake Total 1125 ml Balance 1125 ml Intake IV Total 1125 ml General Appearance: Alert, Oriented X3, Cooperative, No acute distress HEENT: Atraumatic, PERRLA Lungs: Clear to auscultation, Normal air movement Cardiovascular: Normal S1, Normal S2 Abdomen: Normal bowel sounds, Soft, No tenderness, No hepatospenomegaly, No masses Musculoskeletal: Normal sensory function, Normal motor function Skin: Dry, Intact Psych/Mental Status: Mental status NL, Mood NL Medications Current Medications Medications Dose Ordered Sig/Jacklyn Route Start Time Stop Time Status Last Admin Dose Admin Dextrose/Sodium Chloride 1,000 ml @ 125 mls/hr Q8H IV 08/28/24 20:45 08/29/24 04:45 125 MLS/HR Hydralazine HCl 10 mg Q6HP PRN IV 08/29/24 09:45 08/29/24 13:13 10 MG Laboratory Results Laboratory Tests 08/29/24 04:55 08/29/24 13:13 Chemistry Test 08/28/24 16:32 08/28/24 21:08 08/29/24 04:55 08/29/24 13:13 Calcium Level 10.8 mg/dL (8.7-10.4) H 10.1 mg/dL (8.7-10.4) 9.5 mg/dL (8.7-10.4) 10.9 mg/dL (8.7-10.4) H Albumin 4.1 g/dL (3.2-4.8) Magnesium Level 2.0 mg/dL (1.6-2.6) 1.9 mg/dL (1.6-2.6) Total Protein 7.0 g/dL (5.7-8.2) Lipid panel Test 08/29/24 04:55 Cholesterol Level 136 mg/dL (< 200) HDL Cholesterol 56 mg/dL (40-59) Triglycerides Level 32 mg/dL (< 150) LFT Test 08/28/24 21:08 Alanine Aminotransferase (ALT) 57 U/L (7-40) H Alkaline Phosphatase 78 U/L (46-116) Aspartate Amino Transferase (AST) 83 U/L (13-40) H Total Bilirubin 0.5 mg/dL (0.2-1.0) HgA1c, TSH Test 08/29/24 04:55 Hemoglobin A1c 5.3 % A1C (<5.7) Thyroid Stimulating Hormone (TSH) 1.72 uIU/mL (0.55-4.78) Urinalysis Test 08/28/24 19:30 Urine Color Light-yellow (Yellow) Urine Clarity Clear (Clear) Urine pH 7.0 (5.0-9.0) Urine Specific [place] 1.015 (1.001-1.035) Urine Protein Trace (Negative) H Urine Ketones Negative (Negative) Urine Blood 3+ /uL (Negative) H Urine Nitrite Negative (Negative) Urine Bilirubin Negative (Negative) Urine Urobilinogen Normal mg/dL (Negative) Urine Leukocyte Esterase Negative /uL (Negative) Urine RBC 1 /hpf (0 - 3) Urine Microscopic WBC 1 /HPF (0-3) Urine Squamous Epithelial Cells Few /hpf (<5) Urine Bacteria Few /hpf (None Seen) H Urine Sperm Present /hpf (None Seen) Urine Glucose Normal mg/dL (Normal) Labs and/or images reviewed: Labs reviewed by me, Image(s) reviewed by me Assessment/Plan Assessment/Plan Impression: -suicide attempt with intentional overdose on prescribed medications -syncopal episodes -schizophrenia -? Carotid artery disease -accelerated hypertension -sirs without organ dysfunction Plan: -cardiology consultation -psychiatry consultation -ibuprofen for pain -continue IV fluids -blood pressure control with labetalol -bedside sitter until cleared by Psychiatry -serial BMP -transfer to telemetry floor Total time spent with patient discussing and formulating plan of care: 35 minutes. This medical document was created using an electronic medical record system with [employer] dictation system. Although this document has been carefully reviewed, there may still be some phonetic and typographical errors. These areas are purely typographical due to imperfections of the software programs, and do not reflect any compromise in the patient's medical care. Plan discussed with: Patient, Other (RN) My Orders Orders - CLEMENTINE FERNANDEZ NP Procedure Category Date Status Time Ibuprofen Tablet PHA 08/29/24 Verified (Motrin Tablet) 15:30 *Tele Psych Consult CONS 08/29/24 Verified 15:23 Transfer Orders XFER 08/29/24 Verified 15:23 Date of Service: Aug 29, 2024 Billing Provider: CLEMENTINE FERNANDEZ NP Common Visit Codes: [id number] INP/OBS CARE(HIGH) CLEMENTINE FERNANDEZ NP Aug 29, 2024 15:28
[2024-08-29] MEDS ORDERED: LABETALOL HCL 20 MG/4 ML VL IV PRN (15:30)
[2024-08-29] MEDS: IOHEXOL 350 MG/ML 100ML IJ ONE (15:39)
[2024-08-29] MEDS: IBUPROFEN 400 MG TAB PO PRN (16:10)
--- NOTE | 2024-08-29 16:14 | DVH ---
CT angiogram of the neck HISTORY: carotid artery disease TECHNIQUE: Serial axial images were performed to the neck following bolus contrast administration of 100 mL of Omnipaque 350. Multiplanar sagittal and coronal images were obtained FINDINGS: Normal flow seen through the right common carotid artery and bulb. Minimal plaque along the posterior wall of the proximal right internal carotid artery Normal flow seen through the left common carotid artery, and bulb minimal plaque seen in the proximal left internal carotid artery Normal flow seen to the vertebral arteries. No abnormal soft tissue masses seen in the neck. No enlarged lymph nodes. Degenerative changes in the cervical spine IMPRESSION: 1. No hemodynamically significant stenosis. Minimal plaquing noted in both proximal internal carotid arteries Computed Tomographic Radiation Dosimetry Report: Total CTDI vol = 22 mGy Total DLP = 530 mGy-cm All CT scans at this medical facility are performed using dose modulation techniques as appropriate t o a performed exam including the following: Automated exposure control was utilized; adjustment of the MA and/or KvP according to patient size; a nd use of iterative reconstruction technique.
--- NOTE | 2024-08-29 16:45 | DVHINCON2 ---
Date of service: Aug 29, 2024 Reason for Consultation CANDIDO History of Present Illness 54 year old male hx Autism presented to ER after syncope in setting of medication overdose. Admitted for possible suicide attempt. Past Medical History autism, HTN , schizophrenia on multiple medications Allergies: Coded Allergies: Haloperidol (Verified Allergy, Unknown, 07/16/24) Uncoded Allergies: red dye (Allergy, Intermediate, RASH, 08/29/24) PER SISTER MARTÍNEZ Home Meds Active Scripts Cephalexin Monohydrate (Cephalexin) 500 Mg Cap, 1 CAP PO TID for 7 Days, #21 CAP Prov:RUPESH MONTOYA [employer]rum [employer] 07/16/24 Current Medications Current Medications Medications (Trade) Dose Ordered Sig/Jacklyn Route PRN Reason Start Time Stop Time Status Last Admin Dextrose/Sodium Chloride 1,000 ml @ 125 mls/hr Q8H IV 08/28/24 20:45 08/29/24 16:54 DC 08/29/24 04:45 Hydralazine HCl (Apresoline Injection) 10 mg Q6HP PRN IV SBP>150 08/29/24 09:45 08/29/24 13:13 Ibuprofen (Motrin Tablet) 400 mg Q8HP PRN PO MODERATE PAIN (4-6 PAIN SCALE) 08/29/24 15:30 08/29/24 16:10 Labetalol HCl (Labetalol HCl) 10 mg Q2HPRN PRN IV SBP>150 08/29/24 15:30 Dextrose/Sodium Chloride 1,000 ml @ 50 mls/hr Q20H IV 08/29/24 17:00 08/29/24 17:03 Family History: Patient reports no known family medical history. Review of Systems syncope H&P Exam Vital Signs/I&O Vital Sign Date Time Temp Pulse Resp B/P (MAP) Pulse Ox O2 Delivery O2 Flow Rate FiO2 08/29/24 17:01 146/96 08/29/24 16:00 80 08/29/24 13:36 98.6 98.6 08/29/24 10:00 17 96 08/28/24 20:30 Room Air* 0 21 Intake and Output 08/28/24 08/29/24 19:00 07:00 Intake Total 1250 ml Balance 1250 ml Intake IV Total 1250 ml Physical Exam middle aged male NAD vitals WNL no edema Labs/Diagnostic Data Labs/Diagnostic Data Laboratory Tests Test 08/29/24 13:13 08/29/24 04:55 08/28/24 21:08 08/28/24 19:30 Range/Units Sodium Level 141 142 # 150 H 136-145 mmol/L Potassium Level 3.9 3.9 3.4 L 3.5-5.1 mmol/L Chloride Level 103 105 111 H 98-107 mmol/L Carbon Dioxide Level 30 28 30 20-31 mmol/L Anion Gap 8 9 9 5-15 Blood Urea Nitrogen 13 12 18 9-23 mg/dL Creatinine 0.97 0.87 1.17 0.700-1.30 mg/dL Glomerular Filtration Rate Calc 93 103 75 >90 mL/min BUN/Creatinine Ratio 13.4 13.8 15.4 10.0-20.0 Serum Glucose 113 H 101 118 H 74-106 mg/dL Calcium Level 10.9 H 9.5 10.1 8.7-10.4 mg/dL White Blood Count 13.0 #H 4.4-10.8 10^3/uL Red Blood Count 5.09 4.5-5.90 10^6/uL Hemoglobin 14.1 13.5-17.5 g/dL Hematocrit 42.0 41.0-53.0 % Mean Corpuscular Volume 82.5 80.0-100.0 fL Mean Corpuscular Hemoglobin 27.8 L 28.0-32.0 pg Mean Corpuscular Hemoglobin Concent 33.7 32.0-36.0 g/dL Red Cell Distribution Width 13.7 11.8-14.3 % Platelet Count 308 140-450 10^3/uL Mean Platelet Volume 7.6 6.9-10.8 fL Neutrophils (%) (Auto) 81.2 H 37.0-80.0 % Lymphocytes (%) (Auto) 10.6 10.0-50.0 % Monocytes (%) (Auto) 7.9 0.0-12.0 % Eosinophils (%) (Auto) 0.1 0.0-7.0 % Basophils (%) (Auto) 0.2 0.0-2.0 % Neutrophils # (Auto) 10.5 H 1.6-8.6 10 ^3/uL Lymphocytes # (Auto) 1.4 0.4-5.4 10 ^3/uL Monocytes # (Auto) 1.0 0-1.3 10 ^3/uL Eosinophils # (Auto) 0 0-0.8 10 ^3/uL Basophils # (Auto) 0 0-0.2 10 ^3/uL Nucleated Red Blood Cells 0.0 % Hemoglobin A1c 5.3 <5.7 % A1C Magnesium Level 1.9 2.0 1.6-2.6 mg/dL Triglycerides Level 32 < 150 mg/dL Cholesterol Level 136 < 200 mg/dL LDL Cholesterol 69 < 100 mg/dL HDL Cholesterol 56 40-59 mg/dL Thyroid Stimulating Hormone (TSH) 1.72 0.55-4.78 uIU/mL Total Bilirubin 0.5 0.2-1.0 mg/dL Aspartate Amino Transferase (AST) 83 H 13-40 U/L Alanine Aminotransferase (ALT) 57 H 7-40 U/L Alkaline Phosphatase 78 46-116 U/L Total Protein 7.0 5.7-8.2 g/dL Albumin 4.1 3.2-4.8 g/dL Urine Color Light-yellow Yellow Urine Clarity Clear Clear Urine pH 7.0 5.0-9.0 Urine Specific [place] 1.015 1.001-1.035 Urine Protein Trace H Negative Urine Ketones Negative Negative Urine Blood 3+ H Negative /uL Urine Nitrite Negative Negative Urine Bilirubin Negative Negative Urine Urobilinogen Normal Negative mg/dL Urine Leukocyte Esterase Negative Negative /uL Urine RBC 1 0 - 3 /hpf Urine Microscopic WBC 1 0-3 /HPF Urine Squamous Epithelial Cells Few <5 /hpf Urine Bacteria Few H None Seen /hpf Urine Sperm Present None Seen /hpf Urine Glucose Normal Normal mg/dL Urine Opiates Screen Neg NEGATIVE Urine Fentanyl Screen Neg NEGATIVE Urine Barbiturates Screen Neg NEGATIVE Urine Phencyclidine Screen Neg NEGATIVE Urine Amphetamines Screen Neg NEGATIVE Urine Benzodiazepines Screen Neg NEGATIVE Urine Cocaine Screen Neg NEGATIVE Urine Cannabinoids Screen Neg NEGATIVE Test 08/28/24 16:32 Range/Units White Blood Count 18.6 H 4.4-10.8 10^3/uL Red Blood Count 5.09 4.5-5.90 10^6/uL Hemoglobin 14.1 13.5-17.5 g/dL Hematocrit 41.8 41.0-53.0 % Mean Corpuscular Volume 82.3 80.0-100.0 fL Mean Corpuscular Hemoglobin 27.7 L 28.0-32.0 pg Mean Corpuscular Hemoglobin Concent 33.6 32.0-36.0 g/dL Red Cell Distribution Width 13.4 11.8-14.3 % Platelet Count 289 140-450 10^3/uL Mean Platelet Volume 7.2 6.9-10.8 fL Neutrophils (%) (Auto) 91.5 H 37.0-80.0 % Lymphocytes (%) (Auto) 2.3 L 10.0-50.0 % Monocytes (%) (Auto) 6.0 0.0-12.0 % Eosinophils (%) (Auto) 0.1 0.0-7.0 % Basophils (%) (Auto) 0.1 0.0-2.0 % Neutrophils # (Auto) 17.0 H 1.6-8.6 10 ^3/uL Lymphocytes # (Auto) 0.4 0.4-5.4 10 ^3/uL Monocytes # (Auto) 1.1 0-1.3 10 ^3/uL Eosinophils # (Auto) 0 0-0.8 10 ^3/uL Basophils # (Auto) 0 0-0.2 10 ^3/uL Nucleated Red Blood Cells 0.2 % Sodium Level 150 H 136-145 mmol/L Potassium Level 3.7 3.5-5.1 mmol/L Chloride Level 111 H 98-107 mmol/L Carbon Dioxide Level 31 20-31 mmol/L Anion Gap 8 5-15 Blood Urea Nitrogen 18 9-23 mg/dL Creatinine 1.19 0.700-1.30 mg/dL Glomerular Filtration Rate Calc 73 >90 mL/min BUN/Creatinine Ratio 15.1 10.0-20.0 Serum Glucose 105 74-106 mg/dL Calcium Level 10.8 H 8.7-10.4 mg/dL Salicylates Level < 3.0 -30 mg/dL Acetaminophen Level < 2.0 L 10.0-20.0 UG/ML Plasma/Serum Blood Alcohol 3.2 <10 mg/dL Assessment 54 year old male admitted for possible suicide attempt in setting of medication overdose CANDIDO hemodynamic hypertension Autism/schizophrenia supportive care BP management, IV lowering meds, will use oral norvasc. Will hold off on lisinopril because still in 24hr window close monitoring of vitals agree with IVF I/O no indication for dialysis at this time, highly protein bound medications are not dialyzable Plan discussed with: Patient TE ULRICH MD Aug 29, 2024 16:45
[2024-08-29] MEDS: amLODIPine BESYLATE 5 MG TAB PO ONE (17:01)
[2024-08-29] MEDS: D5W/SOD CHL 0.45% 1,000 ML IV SCH (17:03)
--- NOTE | 2024-08-29 17:34 | DVHSR ---
APPROVED REPORT EXAM: Two-dimensional and M-mode echocardiogram with Doppler and color Doppler. Blood Pressure: 162/102 mmHg INDICATION Arrhythmia Prolonged QT OD RISK FACTORS Height: 5'5", Weight: 154 DIMENSIONS LVDd (3.8-5.7cm)LA (2D)3.3 (1.9-4.0cm)Aortic Root (2.0-3.7cm) EF (%) 52.0 (55-70%)Rt. Atrium3.1 (1.9-4.0cm)Asc. Aorta cm Mitral Valve MitralMitral Stenosis E wave0.73m/sMV Mean GR.mmHg A wave0.91m/sMV Peak GR.mmHg E/A ratio0.82D MVAcm2 DECEL [id number] 1/2 Timems Aortic Valve Aortic ValveAortic Stenosis V10.92m/Ilene Mean GR.5mmHg V21.53m/Ilene Peak GR.9mmHg LVOT Diameter1.9 (1.8-2.4cm)Doppler AVA1.70cm2 Tricuspid Valve TR Velocity1.96m/s [id number] Other Information Quality : Technically LimitedRhythm : Technically limited study due to body habitus. Conclusion lvef 55% moderate LVH grade 1 diastolic dysfunction normal rv function no severe valve abnormaliteis noted
[2024-08-29 18:26] LABS: Chloride 104 mmol/L (98-107); Potassium 4.1 mmol/L (3.5-5.1); Sodium 140 mmol/L (136-145)
[2024-08-29 18:27] LABS: Anion Gap 9 (5-15); Calcium 10.2 mg/dL (8.7-10.4); Carbon Dioxide 27 mmol/L (20-31)
[2024-08-29 18:32] LABS: BUN/Creatinine Ratio 14.5 (10.0-20.0); Blood Urea Nitrogen 12 mg/dL (9-23); Glucose 106 mg/dL (74-106)
[2024-08-30] VITALS (8 sets, daily range): BP systolic 109–170; BP diastolic 51–108; PULSE 66–88; RESP 16–18; TEMP 96.7–98.6; O2SAT 96–98
[2024-08-30 00:54] LABS: Chloride 105 mmol/L (98-107); Sodium 140 mmol/L (136-145)
[2024-08-30 00:55] LABS: Anion Gap 8 (5-15); Carbon Dioxide 27 mmol/L (20-31)
[2024-08-30 00:57] LABS: Calcium 9.5 mg/dL (8.7-10.4)
[2024-08-30 01:00] LABS: BUN/Creatinine Ratio 14.3 (10.0-20.0); Blood Urea Nitrogen 11 mg/dL (9-23); Glucose 102 mg/dL (74-106)
[2024-08-30 06:45] LABS: Chloride 103 mmol/L (98-107); Potassium 3.7 mmol/L (3.5-5.1); Sodium 140 mmol/L (136-145)
[2024-08-30 06:46] LABS: Anion Gap 10 (5-15); Carbon Dioxide 27 mmol/L (20-31)
[2024-08-30 06:48] LABS: Calcium 9.4 mg/dL (8.7-10.4)
[2024-08-30 06:51] LABS: BUN/Creatinine Ratio 14.3 (10.0-20.0); Blood Urea Nitrogen 10 mg/dL (9-23); Glucose 89 mg/dL (74-106)
--- NOTE | 2024-08-30 10:35 | DVHINCON2 ---
Date of Service if different f: Aug 30, 2024 Consultation ([place]) Labs Laboratory Tests Test 08/28/24 16:32 08/28/24 19:30 08/28/24 21:08 08/29/24 04:55 Salicylates Level < 3.0 mg/dL (-30) Acetaminophen Level < 2.0 UG/ML (10.0-20.0) Plasma/Serum Blood Alcohol 3.2 mg/dL (<10) Urine Color Light-yellow (Yellow) Urine Clarity Clear (Clear) Urine pH 7.0 (5.0-9.0) Urine Specific [place] 1.015 (1.001-1.035) Urine Protein Trace (Negative) Urine Ketones Negative (Negative) Urine Blood 3+ /uL (Negative) Urine Nitrite Negative (Negative) Urine Bilirubin Negative (Negative) Urine Urobilinogen Normal mg/dL (Negative) Urine Leukocyte Esterase Negative /uL (Negative) Urine RBC 1 /hpf (0 - 3) Urine Microscopic WBC 1 /HPF (0-3) Urine Squamous Epithelial Cells Few /hpf (<5) Urine Bacteria Few /hpf (None Seen) Urine Sperm Present /hpf (None Seen) Urine Glucose Normal mg/dL (Normal) Urine Opiates Screen Neg (NEGATIVE) Urine Fentanyl Screen Neg (NEGATIVE) Urine Barbiturates Screen Neg (NEGATIVE) Urine Phencyclidine Screen Neg (NEGATIVE) Urine Amphetamines Screen Neg (NEGATIVE) Urine Benzodiazepines Screen Neg (NEGATIVE) Urine Cocaine Screen Neg (NEGATIVE) Urine Cannabinoids Screen Neg (NEGATIVE) Total Bilirubin 0.5 mg/dL (0.2-1.0) Aspartate Amino Transf (AST/SGOT) 83 U/L (13-40) Alanine Aminotransferase (ALT/SGPT) 57 U/L (7-40) Alkaline Phosphatase 78 U/L (46-116) Total Protein 7.0 g/dL (5.7-8.2) Albumin 4.1 g/dL (3.2-4.8) White Blood Count 13.0 10^3/uL (4.4-10.8) Red Blood Count 5.09 10^6/uL (4.5-5.90) Hemoglobin 14.1 g/dL (13.5-17.5) Hematocrit 42.0 % (41.0-53.0) Mean Corpuscular Volume 82.5 fL (80.0-100.0) Mean Corpuscular Hemoglobin 27.8 pg (28.0-32.0) Mean Corpuscular Hemoglobin Concent 33.7 g/dL (32.0-36.0) Red Cell Distribution Width 13.7 % (11.8-14.3) Platelet Count 308 10^3/uL (140-450) Mean Platelet Volume 7.6 fL (6.9-10.8) Neutrophils (%) (Auto) 81.2 % (37.0-80.0) Lymphocytes (%) (Auto) 10.6 % (10.0-50.0) Monocytes (%) (Auto) 7.9 % (0.0-12.0) Eosinophils (%) (Auto) 0.1 % (0.0-7.0) Basophils (%) (Auto) 0.2 % (0.0-2.0) Neutrophils # (Auto) 10.5 10 ^3/uL (1.6-8.6) Lymphocytes # (Auto) 1.4 10 ^3/uL (0.4-5.4) Monocytes # (Auto) 1.0 10 ^3/uL (0-1.3) Eosinophils # (Auto) 0 10 ^3/uL (0-0.8) Basophils # (Auto) 0 10 ^3/uL (0-0.2) Nucleated Red Blood Cells 0.0 % Hemoglobin A1c 5.3 % A1C (<5.7) Magnesium Level 1.9 mg/dL (1.6-2.6) Triglycerides Level 32 mg/dL (< 150) Cholesterol Level 136 mg/dL (< 200) LDL Cholesterol 69 mg/dL (< 100) HDL Cholesterol 56 mg/dL (40-59) Thyroid Stimulating Hormone (TSH) 1.72 uIU/mL (0.55-4.78) Test 08/30/24 05:31 Sodium Level 140 mmol/L (136-145) Potassium Level 3.7 mmol/L (3.5-5.1) Chloride Level 103 mmol/L (98-107) Carbon Dioxide Level 27 mmol/L (20-31) Anion Gap 10 (5-15) Blood Urea Nitrogen 10 mg/dL (9-23) Creatinine 0.70 mg/dL (0.700-1.30) Glomerular Filtration Rate Calc 110 mL/min (>90) BUN/Creatinine Ratio 14.3 (10.0-20.0) Serum Glucose 89 mg/dL (74-106) Calcium Level 9.4 mg/dL (8.7-10.4) Appetite: Good Appearance: Stated age, Groomed Psychomotor activity: Restless Behavioral: Cooperative Eye contact: Appropriate Affect: Mood Congruent Mood: Depressed Thought processes: [place] Thought content: WNL Suicidal ideations: Absent Homicidal ideations: Absent Orientation: Person, Place, Time, Situation Memory intact: Recent Intellect: Average Concentration: Adequate Attention: Adequate Judgement: Marginal Insight: Marginal Vitals Vital Signs Date Time Temp Pulse Resp B/P (MAP) Pulse Ox O2 Delivery O2 Flow Rate FiO2 08/30/24 05:00 97.9 76 17 138/86 (103) 98 97.9 08/30/24 01:28 Room Air* 0 21 Current medications Current Medications Medications Dose Ordered Sig/Jacklyn Route Start Time Stop Time Status Last Admin Dose Admin Hydralazine HCl 10 mg Q6HP PRN IV 08/29/24 09:45 08/30/24 04:04 10 MG Ibuprofen 400 mg Q8HP PRN PO 08/29/24 15:30 08/30/24 04:12 400 MG Labetalol HCl 10 mg Q2HPRN PRN IV 08/29/24 15:30 Dextrose/Sodium Chloride 1,000 ml @ 50 mls/hr Q20H IV 08/29/24 17:00 08/29/24 17:03 50 MLS/HR Treatment plan discussed: With staff Medication adjusted: No Diagnosis: schizoaffective, Autism Plan : This is a 54-year male with hx of Autism and schizoaffective disorder presents here after overdose Recommend to continue 1:1 sitter for safety. Recommend to transfer inpatient psychiatric facility for stabilization after medical clearance may restart current psychotropic medications as prescribed Patient may go voluntarily as he is agrees to this or involuntarily with 5150hold for DTS. History of Present Illness Reason for Consult : Patient admitted for overdose of multiple pills HPI : This is a 54-year-old male with prior psychiatric history of Autism and schizophrenia presents here for overdose of multiple pills of Geodon, Risperdal, buspar and prozac. he cannot recall exact amount or dose. He later had syncope after ingestion and has abrasions to his face. He reports sister promised him a new iphone but she took too long to give him the phone. He reports" I wanted the phone right away, not later or tomorrow, but right now." He reports then ingested the pills because he was very angry. He current reports mood as "sad" and reports he is not ready to return home. He denies any problems or abuse at home. He does reports feeling depressed. He denies suicidal/homicidal ideation currently. He denies auditory/visual hallucinations or paranoia now. He reports yesterday hearing voices to harm himself, but denies today. He reports sleep and appetite as fine. Past Psychiatric History : He reports prior diagnoses of schizoaffective disorder and autism. he has a therapist at [facility] and psychiatrist at [facility]. He reports prior psych admissions and one prior suicide attempt 3 years in [place] and after trying to walking in front of vehicle. He reports psychotropic medications of Geodon, Risperdal, buspar, and prozac. He reports unknown dose but is is compliant. Past Medical History : He reports hx of HTN, BPH and per chart review. Social History : He reports living with sister and her . He is unemployed and receives disability. He denies history or current drugs and alcohol use. He reports quitting vaping nicotine one year ago. He reports mom had history of schizophrenia and 3 years ago. He is single, no children. MALACHI DUENAS [facility] Aug 30, 2024 10:35
[2024-08-30 12:34] LABS: Chloride 102 mmol/L (98-107); Potassium 3.9 mmol/L (3.5-5.1); Sodium 138 mmol/L (136-145)
[2024-08-30 12:35] LABS: Calcium 9.6 mg/dL (8.7-10.4); Carbon Dioxide 27 mmol/L (20-31)
[2024-08-30 12:40] LABS: BUN/Creatinine Ratio 12.7 (10.0-20.0); Blood Urea Nitrogen 10 mg/dL (9-23); Glucose 97 mg/dL (74-106)
[2024-08-30 13:08] LABS: Anion Gap 9 (5-15)
[2024-08-30] MEDS: amLODIPine BESYLATE 5 MG TAB PO SCH (14:15)
[2024-08-30] MEDS ORDERED: BUSP10TA31 PO (15:40)
[2024-08-30] MEDS ORDERED: FLUO40CA PO (15:40)
[2024-08-30] MEDS ORDERED: QUET1TAB11 PO (15:40)
--- NOTE | 2024-08-30 15:51 | DVHDS2 ---
Discharge Summary Date of Admission Aug 28, 2024 at 20:31 Date of Discharge: Aug 30, 2024 Admitting Diagnosis Intentional overdose Labs/Diagnostic Data: Laboratory Results Test 08/30/24 11:55 08/29/24 04:55 08/28/24 21:08 08/28/24 19:30 Sodium Level 138 mmol/L (136-145) Potassium Level 3.9 mmol/L (3.5-5.1) Chloride Level 102 mmol/L (98-107) Carbon Dioxide Level 27 mmol/L (20-31) Anion Gap 9 (5-15) Blood Urea Nitrogen 10 mg/dL (9-23) Creatinine 0.79 mg/dL (0.700-1.30) Glomerular Filtration Rate Calc 106 mL/min (>90) BUN/Creatinine Ratio 12.7 (10.0-20.0) Serum Glucose 97 mg/dL (74-106) Calcium Level 9.6 mg/dL (8.7-10.4) White Blood Count 13.0 10^3/uL (4.4-10.8) Red Blood Count 5.09 10^6/uL (4.5-5.90) Hemoglobin 14.1 g/dL (13.5-17.5) Hematocrit 42.0 % (41.0-53.0) Mean Corpuscular Volume 82.5 fL (80.0-100.0) Mean Corpuscular Hemoglobin 27.8 pg (28.0-32.0) Mean Corpuscular Hemoglobin Concent 33.7 g/dL (32.0-36.0) Red Cell Distribution Width 13.7 % (11.8-14.3) Platelet Count 308 10^3/uL (140-450) Mean Platelet Volume 7.6 fL (6.9-10.8) Neutrophils (%) (Auto) 81.2 % (37.0-80.0) Lymphocytes (%) (Auto) 10.6 % (10.0-50.0) Monocytes (%) (Auto) 7.9 % (0.0-12.0) Eosinophils (%) (Auto) 0.1 % (0.0-7.0) Basophils (%) (Auto) 0.2 % (0.0-2.0) Neutrophils # (Auto) 10.5 10 ^3/uL (1.6-8.6) Lymphocytes # (Auto) 1.4 10 ^3/uL (0.4-5.4) Monocytes # (Auto) 1.0 10 ^3/uL (0-1.3) Eosinophils # (Auto) 0 10 ^3/uL (0-0.8) Basophils # (Auto) 0 10 ^3/uL (0-0.2) Nucleated Red Blood Cells 0.0 % Hemoglobin A1c 5.3 % A1C (<5.7) Magnesium Level 1.9 mg/dL (1.6-2.6) Triglycerides Level 32 mg/dL (< 150) Cholesterol Level 136 mg/dL (< 200) LDL Cholesterol 69 mg/dL (< 100) HDL Cholesterol 56 mg/dL (40-59) Thyroid Stimulating Hormone (TSH) 1.72 uIU/mL (0.55-4.78) Total Bilirubin 0.5 mg/dL (0.2-1.0) Aspartate Amino Transferase (AST) 83 U/L (13-40) Alanine Aminotransferase (ALT) 57 U/L (7-40) Alkaline Phosphatase 78 U/L (46-116) Total Protein 7.0 g/dL (5.7-8.2) Albumin 4.1 g/dL (3.2-4.8) Urine Color Light-yellow (Yellow) Urine Clarity Clear (Clear) Urine pH 7.0 (5.0-9.0) Urine Specific [place] 1.015 (1.001-1.035) Urine Protein Trace (Negative) Urine Ketones Negative (Negative) Urine Blood 3+ /uL (Negative) Urine Nitrite Negative (Negative) Urine Bilirubin Negative (Negative) Urine Urobilinogen Normal mg/dL (Negative) Urine Leukocyte Esterase Negative /uL (Negative) Urine RBC 1 /hpf (0 - 3) Urine Microscopic WBC 1 /HPF (0-3) Urine Squamous Epithelial Cells Few /hpf (<5) Urine Bacteria Few /hpf (None Seen) Urine Sperm Present /hpf (None Seen) Urine Glucose Normal mg/dL (Normal) Urine Opiates Screen Neg (NEGATIVE) Urine Fentanyl Screen Neg (NEGATIVE) Urine Barbiturates Screen Neg (NEGATIVE) Urine Phencyclidine Screen Neg (NEGATIVE) Urine Amphetamines Screen Neg (NEGATIVE) Urine Benzodiazepines Screen Neg (NEGATIVE) Urine Cocaine Screen Neg (NEGATIVE) Urine Cannabinoids Screen Neg (NEGATIVE) Test 08/28/24 16:32 Salicylates Level < 3.0 mg/dL (-30) Acetaminophen Level < 2.0 UG/ML (10.0-20.0) Plasma/Serum Blood Alcohol 3.2 mg/dL (<10) Other Laboratory Tests 08/30/24 11:55 08/29/24 04:55 Brief Hx & Hospital Course: HPI Mr. Declan Ayala is a 54 year old male with a history of schizophrenia who presents with a chief complaint of overdose with suicidal attempt through overdose, due to an argument he had with his sister, patient reported taking Prozac 40mg x2 tablets, Lisinopril 5mg x4 tablets, BuSpar 10mg X5 tablets, Xanax x1 tablet, and Risperdal 50mg x1 tablet. EMS reported patient had a witnessed syncopal episode following ingestion resulting in him falling forward and hitting his face with associated abrasions to bilateral upper and lower extremities and facial abrasions. Patient denies LOC, auditory hallucinations, visual hallucinations, or homicidal ideation. He does endorse he continues to have suicidal ideation. No other symptoms or modifying factors present at this time. Patient admitted for further evaluation and close monitoring. Course of hospitalization: Patient remained hemodynamically stable. Patient had consultation with poison control. Patient found to be medically stable with persistent thoughts of suicidal ideation on my assessment. Psychiatry consultation was obtained. Recommendations were reviewed, with patient agreed to be transferred to inpatient psychiatry. At this time he will be restarted on his home antipsychotic medications as recommended. Patient will also be restarted amlodipine 10 mg p.o. daily for noted hypertension. Physical examination General: Alert and Oriented x3. No acute distress. Well-nourished. Eyes: EOMI. Anicteric. HENT: Moist mucous membranes. Lungs: Clear to auscultation bilaterally. No accessory muscle use. Cardiovascular: Regular rate and rhythm. No murmur. No JVD. Abdomen: Soft, non-tender and non-distended. No palpable masses. Extremities: No edema. Non-tender. Skin: No rashes or lesions. Warm. Neurologic: No focal neurological deficits. CN II-XII grossly intact, but not individually tested. Psychiatric: Cooperative. Appropriate mood and affect. Total time spent with patient discussing and formulating plan of care: 35 minutes. This medical document was created using an electronic medical record system with [employer] dictation system. Although this document has been carefully reviewed, there may still be some phonetic and typographical errors. These areas are purely typographical due to imperfections of the software programs, and do not reflect any compromise in the patient's medical care. Consults/Reason for consult Psychiatry: Suicide attempt Condition at Discharge: Fair Final Diagnosis/Problems List Intentional overdose with suicidal ideation Secondary diagnosis: Impression: -suicide attempt with intentional overdose on prescribed medications -syncopal episodes -schizophrenia -? Carotid artery disease -accelerated hypertension -sirs without organ dysfunction Discharge Disposition: Psychiatric Facility Discharge Instruct/Medications Diet: Cardiac 2g Na,low cholest Activity: No Restrictions, As Tolerated Follow Up/Referral: Follow up with outpatient psychiatry once discharged from inpatient psychiatry facility Medications: Refer to medication reconciliation form 36 Discharge Statement: "Patient was advised to return to the ER or call 911 if any headaches, dizziness, shortness of breath, chest pain, abdominal pain, bleeding, fevers, or worsening of medical condition. Patient was counseled about treatment plan, medications, possible side effects, patientverbalized understanding. All questions were answered to the best of my ability. This discharge took greater then 30 minutes in planning, reviewing documentation, counseling the patient, and discussing with other team members." ASSESSMENT ASSESSMENT Assessment Intentional overdose with suicidal ideation Date of Service: Aug 30, 2024 Billing Provider: CLEMENTINE FERNANDEZ NP Common Visit Codes: 45798-QZK/OBS DISCH DAY >30min CLEMENTINE FERNANDEZ NP Aug 30, 2024 15:51
--- NOTE | 2024-08-30 16:23 | DVHPN2 ---
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 No cardiac events reported Objective vital signs Vital Sign Date Time Temp Pulse Resp B/P (MAP) Pulse Ox O2 Delivery O2 Flow Rate FiO2 08/30/24 14:15 153/88 08/30/24 08:05 79 08/30/24 08:05 Room Air* 0 21 08/30/24 05:00 97.9 17 98 97.9 Total Intake and Output 08/29/24 08/29/24 08/30/24 15:00 23:00 07:00 Intake Total 1000 ml 1429 ml 1100 ml Output Total 100 ml Balance 1000 ml 1329 ml 1100 ml medications Current Medications Medications Dose Ordered Sig/Jacklyn Route Start Time Stop Time Status Last Admin Dose Admin Hydralazine HCl 10 mg Q6HP PRN IV 08/29/24 09:45 08/30/24 12:36 10 MG Ibuprofen 400 mg Q8HP PRN PO 08/29/24 15:30 08/30/24 12:36 400 MG Labetalol HCl 10 mg Q2HPRN PRN IV 08/29/24 15:30 Dextrose/Sodium Chloride 1,000 ml @ 50 mls/hr Q20H IV 08/29/24 17:00 08/30/24 12:40 50 MLS/HR Amlodipine Besylate 10 mg DAILY PO 08/30/24 13:15 08/30/24 14:15 10 MG Buspirone HCl 10 mg QPM PO 08/30/24 18:00 Quetiapine Fumarate 25 mg HS PO 08/30/24 22:00 Fluoxetine HCl 40 mg DAILY PO 08/31/24 10:00 Examination: GENERAL:Normal, LUNGS:Normal, CVS:Normal, NEURO:Normal laboratory and microbiology Laboratory Tests 08/30/24 11:55 08/29/24 04:55 Test 08/30/24 11:55 Range/Units Serum Glucose 97 74-106 mg/dL Problem List/Assessment/Plan Problem List/Assessment/Plan Syncope, rule out cardiac etiology Prolonged QTc interval Hypertension Dyslipidemia Suicidal attempt with medication overdose Schizophrenia Bipolar Autism Benign prostatic hyperplasia Plan/Recommendations (Dr. Machado): * Transthoracic echocardiogram reveals EF 55% * Avoid medications that will prolong QT interval, as this places the patient at risk for torsades de pointes * Blood pressure control * Close telemetry monitoring---monitor for any cardiac arrhythmias * Bilateral carotid ultrasound: Elevated right ECA velocity * NECK CTA: No hemodynamically significant stenosis. Minimal plaquing noted in both proximal internal carotid arteries * Orthostatic vital signs There is no further inpatient cardiac workup indicated at this time. Patient pending transfer to inpatient psychiatric facility. Please feel free to reconsult if needed. Thank you for allowing us to care for this patient. Please call with any questions or concerns. This medical document was created using an electronic medical record system with voice recognition software and computerized dictation system. Although this document has been carefully reviewed, there might still be some phonetic and typographical errors. Occasional wrong-word or ``sound-alike substitutions may have occurred due to the inherent limitations of voice recognition software. These areas are purely typographical due to imperfections of the software programs and do not reflect any compromise in the patient's medical care. Please read the chart carefully and recognize, using context, where these substitutions have occurred. Plan discussed with: Patient Date of Service: Aug 30, 2024 Billing Provider: SILVER BRIGHT Common Visit Codes: [id number] INP/OBS CARE(HIGH) SILVER BRIGHT Aug 30, 2024 16:23
[2024-08-30] MEDS: busPIRone HCL 10 MG TAB PO SCH (16:44)
[2024-08-30] MEDS: QUEtiapine FUMARATE 25 MG TAB PO SCH (21:22)
[2024-08-31] VITALS (7 sets, daily range): BP systolic 119–149; BP diastolic 82–102; PULSE 65–74; RESP 16–19; TEMP 97.8–98.3; O2SAT 96–98
[2024-08-31] MEDS: FLUoxetine HCL 20 MG CAP PO SCH (10:10)
--- NOTE | 2024-08-31 12:56 | DVHPN2 ---
Subjective Patient denies any symptoms Reviewed: Care Plan, H&P, Labs, Medications Changes from previous H/P or p: No Changes General: Per HPI Objective Vitals Vital Signs Date Time Temp Pulse Resp B/P (MAP) Pulse Ox O2 Delivery O2 Flow Rate FiO2 08/31/24 10:10 138/96 08/31/24 08:00 66 08/31/24 08:00 Room Air* 0 21 08/31/24 05:00 98.1 17 97 98.1 Intake/Output Intake and Output 08/31/24 07:00 Intake Total 1573 ml Balance 1573 ml Intake Oral 1573 ml # Voids 9 # Bowel Movements 4 General Appearance: Alert, Oriented X3, Cooperative, No acute distress HEENT: Atraumatic, PERRLA Lungs: Clear to auscultation, Normal air movement Cardiovascular: Normal S1, Normal S2 Abdomen: Normal bowel sounds, Soft, No tenderness, No hepatospenomegaly, No masses Musculoskeletal: Normal sensory function, Normal motor function Skin: Dry, Intact Psych/Mental Status: Mental status NL, Mood NL Medications Current Medications Medications Dose Ordered Sig/Jacklyn Route Start Time Stop Time Status Last Admin Dose Admin Hydralazine HCl 10 mg Q6HP PRN IV 08/29/24 09:45 08/30/24 12:36 10 MG Ibuprofen 400 mg Q8HP PRN PO 08/29/24 15:30 08/31/24 05:54 400 MG Labetalol HCl 10 mg Q2HPRN PRN IV 08/29/24 15:30 Dextrose/Sodium Chloride 1,000 ml @ 50 mls/hr Q20H IV 08/29/24 17:00 08/30/24 12:40 50 MLS/HR Amlodipine Besylate 10 mg DAILY PO 08/30/24 13:15 08/31/24 10:10 10 MG Buspirone HCl 10 mg QPM PO 08/30/24 18:00 08/30/24 16:44 10 MG Quetiapine Fumarate 25 mg HS PO 08/30/24 22:00 08/30/24 21:22 25 MG Fluoxetine HCl 40 mg DAILY PO 08/31/24 10:00 08/31/24 10:10 40 MG Laboratory Results Laboratory Tests 08/29/24 04:55 08/30/24 11:55 Urinalysis Test 08/28/24 19:30 Urine Color Light-yellow (Yellow) Urine Clarity Clear (Clear) Urine pH 7.0 (5.0-9.0) Urine Specific [place] 1.015 (1.001-1.035) Urine Protein Trace (Negative) H Urine Ketones Negative (Negative) Urine Blood 3+ /uL (Negative) H Urine Nitrite Negative (Negative) Urine Bilirubin Negative (Negative) Urine Urobilinogen Normal mg/dL (Negative) Urine Leukocyte Esterase Negative /uL (Negative) Urine RBC 1 /hpf (0 - 3) Urine Microscopic WBC 1 /HPF (0-3) Urine Squamous Epithelial Cells Few /hpf (<5) Urine Bacteria Few /hpf (None Seen) H Urine Sperm Present /hpf (None Seen) Urine Glucose Normal mg/dL (Normal) Labs and/or images reviewed: Labs reviewed by me, Image(s) reviewed by me Assessment/Plan Assessment/Plan Impression: -suicide attempt with intentional overdose on prescribed medications -syncopal episodes -schizophrenia -? Carotid artery disease -accelerated hypertension -sirs without organ dysfunction Plan: Events: Plan of care discussed with the patient's sister, Di. At this time she does not want patient transferred to psychiatry facility. She was also offered the option of discharge with the patient and taking the patient to a psychiatry facility as recommended by evaluation performed in the hospital as a volunteer placement. Patient's sister states that she will consider it, but is leaning towards discharge in the patient against medical advice. At this time she is at work and states she will make a decision after 5:00 p.m. -psychiatry consultation -ibuprofen for pain -continue IV fluids Total time spent with patient discussing and formulating plan of care: 35 minutes. This medical document was created using an electronic medical record system with [employer] dictation system. Although this document has been carefully reviewed, there may still be some phonetic and typographical errors. These areas are purely typographical due to imperfections of the software programs, and do not reflect any compromise in the patient's medical care. Plan discussed with: Patient, Other (RN, Sister) My Orders Orders - CLEMENTINE FERNANDEZ OVENS SUPERVISOR Procedure Category Date Status Time Amlodipine Tablet PHA 08/30/24 In Process (Norvasc Tablet) 13:15 * Physician Anesthesiologist CONS 08/30/24 Transmitted Consult Discharge DISCHARGE 08/30/24 Transmitted 15:38 Fluoxetine Capsule PHA 08/31/24 In Process (Prozac Capsule) 10:00 Buspirone Hcl Tablet PHA 08/30/24 In Process (Buspar Tablet) 18:00 Quetiapine Fumarate PHA 08/30/24 In Process Tablet (Seroquel Tab 22:00 Date of Service: Aug 31, 2024 Billing Provider: CLEMENTINE FERNANDEZ NP Common Visit Codes: [id number] INP/OBS CARE(HIGH) CLEMENTINE FERNANDEZ NP Aug 31, 2024 12:55
== END 2024-08-31 18:15 | disposition left against medical advice (07) | DRG 918 ==
LOC: EDBD 15:53 → ER 15:53 → OVERFLOW 20:31 → TELE-CENTR 08-29 22:22
PROVIDERS: ADMIT Hospitalist; ATTEND Hospitalist
DX: T43.222A Poisoning by selective serotonin reuptake inhibitors, intentional self-harm, initial encounter (principal); E87.0 Hyperosmolality and hypernatremia; N17.9 Acute kidney failure, unspecified; F84.0 Autistic disorder; R65.10 Systemic inflammatory response syndrome (SIRS) of non-infectious origin without acute organ dysfunction; Z53.29 Procedure and treatment not carried out because of patient's decision for other reasons; T43.592A Poisoning by other antipsychotics and neuroleptics, intentional self-harm, initial encounter; E78.5 Hyperlipidemia, unspecified; N40.0 Benign prostatic hyperplasia without lower urinary tract symptoms; I10 Essential (primary) hypertension; F31.9 Bipolar disorder, unspecified; F25.9 Schizoaffective disorder, unspecified; S00.81XA Abrasion of other part of head, initial encounter; I25.10 Atherosclerotic heart disease of native coronary artery without angina pectoris; Z56.0 Unemployment, unspecified; Z81.8 Family history of other mental and behavioral disorders; Z87.891 Personal history of nicotine dependence; Z91.51 Personal history of suicidal behavior; Z79.899 Other long term (current) drug therapy; Z79.2 Long term (current) use of antibiotics; X58.XXXA Exposure to other specified factors, initial encounter; Y93.89 Activity, other specified; Y92.89 Other specified places as the place of occurrence of the external cause; Y99.8 Other external cause status
CPT/HCPCS: 36415; 70450; 70498; 71045; 80048; 80053; 80061; 80307; 80320; 80329; 81001; 83036; 83735; 84443; 85025; 93005; 93306; 93886; 96360; 99291; G0378; J1885

== ENCOUNTER 2025-02-01 15:03 | Emergency (ER) | payer MEDICARE, MEDICAID ==
[~2025-02-01] VITALS: Ht 162.6 cm; Wt 64.0 kg
[~2025-02-01 15:03] MED LIST changes: +BUSP10TA31 PO; +FLUO40CA PO; +QUET1TAB11 PO
--- NOTE | 2025-02-01 15:11 | ED.PDOC ---
Psychiatric HPI Comments 54 y.o male with PMHx of diverticulitis and HTN, presents to the ED via EMS for an evaluation of suicidal ideation. Patient reports after slipping in the shower, he developed suicidal ideations and called 911. Patient has plans of running in front of a moving vehicle. He mention previous hx of SI, states last attempt was 2 years ago when he tried to end his life by drinking bleach. He states " I am tired of life and want to end it". He lives with sister and brother in law. Denies any recent alcohol, tobacco or substance use. Time Seen by MD: 15:03 Primary Care Provider: NONE Reviewed Notes: Nurses Notes, Export Coordinator Notes, Medications, Allergies Information Source: Patient, Law Enforcement Mode of Arrival: EMS Severity: Unable to Care for Self Severity of Pain: None Severity of Mental Status: Moderate Severity of Symptoms: Moderate Timing: Hours Duration: Since onset Presents with: Unclear Thinking, Suicidal Ideation Ingestion: None Circumstance: Medical Clearance Current substance abuse: None Stressors: None History of: Suicidal Attempt Associated signs and symptoms: Other Past Medical History PAST MEDICAL HISTORY: HTN, Schizophrenia Family History Family History: Reviewed,noncontributory to illness Social History Smoker: Non-Smoker Alcohol: Denies ETOH Use Drugs: Denies Drug Use Lives In: Home Constitutional: denies: chills, diaphoresis, fatigue, fever, malaise, sweats, weakness, others EENTM: denies: blurred vision, double vision, ear bleeding, ear discharge, ear drainage, ear pain, ear ringing, eye pain, eye redness, hearing loss, mouth pain, mouth swelling, nasal discharge, nose bleeding, nose congestion, nose pain, photophobia, tearing, throat pain, throat swelling, voice changes, others Respiratory: denies: cough, hemoptysis, orthopnea, SOB at rest, shortness of breath, SOB with excertion, stridor, wheezing, others Cardiovascular: denies: chest pain, dizzy spells, diaphoresis, Dyspnea on exertion, edema, irregular heart beat, left arm pain, lightheadedness, palpitations, PND, syncope, others Gastrointestinal: denies: abdomen distended, abdominal pain, blood streaked bowels, constipated, diarrhea, dysphagia, difficulty swallowing, hematemesis, melena, nausea, poor appetite, poor fluid intake, rectal bleeding, rectal pain, vomiting, others Genitourinary: denies: burning, dysuria, flank pain, frequency, hematuria, incontinence, penile discharge, penile sore, pain, testicle pain, testicle swelling, urgency, others Neurological: denies: dizziness, fainting, headache, left sided numbness, left sided weakness, numbness, paresthesia, pre-existing deficit, right sided numbness, right sided weakness, seizure, speech problems, tingling, tremors, weakness, others Musculoskeletal: denies: back pain, gout, joint pain, joint swelling, muscle pain, muscle stiffness, neck pain, others Integumetry: denies: bruises, change in color, change in hair/nails, dryness, laceration, lesions, lumps, rash, wounds, others Allergic/Immunocompromised: denies: Difficulty Healing, Frequent Infections, Hives, Itching, others Hematologic/Lymphatic: denies: anemia, blood clots, easy bleeding, easy bruising, swollen glands, others Endocrine: denies: excessive hunger, excessive sweating, excessive thirst, excessive urination, flushing, intolerance to cold, intolerance to heat, unexplained weight gain, unexplained weight loss, others Psychiatric: reports: suicidal; denies: anxiety, bipolar disorder, depression, hopeless, panic disorder, schizophrenia, sleepless, others All Other Systems: Reviewed and Negative Physical Exam General Appearance: No Apparent Distress HEENT: Normal ENT Inspection, Pharynx Normal, TMs Normal Neck: Full Range of Motion, Non-Tender, Normal, Normal Inspection Respiratory: Chest Non-Tender, Lungs Clear, No Accessory Muscle Use, No Respiratory Distress, Normal Breath Sounds Cardiovascular: No Edema, No JVD, No Murmur, No Gallop, Normal Peripheral Pulses, Regular Rate/Rhythm Breast Exam: Deferred Gastrointestinal: No Organomegaly, Non Tender, No Pulsatile Mass, Normal Bowel Sounds, Soft Genitalia: Deferred Pelvic: Deferred Rectal: Deferred Extremities: No calf tenderness, Normal capillary refill, Normal inspection, Normal range of motion, Non-tender, No pedal edema Musculoskeletal : Apperance: Normal Neurologic: Alert, wire cutter II-XII nml as Tested, No Motor Deficits, No Sensory Deficits, Other (suicidal) Cerebellar Function: Normal Reflexes: Normal Skin: Dry, Normal Color, Warm Lymphatic: No Adenopathy Was a procedure done? Was a procedure done?: No Psych Differential Dx Psych. Differential Dx: Hopeless, Suicidal X-Ray, Labs, Meds, VS Vital Signs Date Time Temp Pulse Resp B/P (MAP) Pulse Ox O2 Delivery O2 Flow Rate FiO2 02/01/25 15:18 98.5 75 16 180/108 99 98.5 Lab Test 02/01/25 15:48 Range/Units Plasma/Serum Blood Alcohol 3.7 <10 mg/dL At this time, the patient is being cleared medically and can be evaluated by the telemedicine psychiatry The alcohol level is negative The patient will be signed out to Dr. Alejandro Time of 1ST Reevaluation: 15:10 Reevaluation 1ST: Unchanged Patient Education/Counseling: Diagnosis, Treatment, Prognosis Family Education/Counseling: No Family Present Departure 1 Departure Time of Disposition: 17:16 Impression: Primary Impression: Suicidal ideation Disposition: 30 STILL A PATIENT Condition: Fair Critical Care Note Critical Care Time?: No Stability Stability form required: No I personally scribed for STEWART SHERWOOD MD ([email or web address]) on 02/01/25 at 15:11. Electronically submitted by Carol Henley ([facility]). STEWART SHERWOOD MD Feb 01, 2025 15:11
[2025-02-01 16:00] VITALS: PULSE 69; RESP 17; O2SAT 97
[2025-02-01 18:17] LABS: Amphetamine Screen, Urine Neg (NEGATIVE); Barbiturate Scree,Urine Neg (NEGATIVE); Benzodiazephine Screen, Urine Neg (NEGATIVE); Cannabinoid Screen, Urine Neg (NEGATIVE); Cocaine Screen, Urine Neg (NEGATIVE); Opiate Scree,Urine Neg (NEGATIVE); Phencyclidine Screen, Urine Neg (NEGATIVE)
[2025-02-01 19:48] VITALS: PULSE 78; RESP 18; O2SAT 97
[2025-02-01 20:04] VITALS: PULSE 69; RESP 17; O2SAT 97
--- NOTE | 2025-02-01 23:28 | DVHINCON2 ---
Date of Service if different f: Feb 01, 2025 Time of Service: 23:09 Consult Consult Note PSYCHIATRY ED NEW CONSULT HPI: 54 yo pt with PPH of depression and anxiety presents to ED BIBA for safety, psychiatric stabilization, and possible med initiation/optimization s/p fall and passive SI. Psychiatry consulted for safety evaluation and recommendations in context of current presentation Pt reports "i slipped and fell in the shower earlier today and since then i have been having suicidal thoughts to walk into traffic, i don't trust myself...i have been impulsive in past" Pt reports mild bruising on head s/p fall but denies LOC Currently c/o unspecified depression and anxiety symptoms, requests inpt psych hospitalization due to ongoing SI with plan to walk into traffic Denies HI/AVH/paranoia/catatonic/manic/dissociative symptoms. Denies recent hx of impulsivity or engaging in risky/reckless behaviors. Denies anxiety/panic/OCD/PTSD symptoms. Denies acute psychosocial stressors Does have active outpt MH services established at this time (both psychiatry and therapy services) Currently rx'd buspar 15 mg bid, trazodone 50 mg qhs, geodon 60 mg qd, and fluoxetine 40 mg qd, overall med compliant with modest therapeutic effects CLINT hx: Denies ETOH, THC or IDU SH: Single, no children, unemployed/ssi, lives with sister/JIMMY, some support system noted (immediate family). Unknown trauma hx FH: Denies FH of psych hospitalizations, suicide attempts, or completed suicides PMH: +HTN/diverticulitis. No hx of seizures/TBI, HIV/hep C, cardiac dz, or recent head injuries, NKDA Hx of SA x 2 via OD on bleach (last attempt in 2022) resulting in several prior psych hospitalizations/5150 holds, last admission several years ago. Denies history of violence, aggression, or assaultive behaviors. Denies any legal problems. Does not have access to firearms. MSE: General Appearance/Behavior: Alert/awake; appears stated age, fair grooming/hygiene; calm/polite and cooperative, fair eye contact, no PMA/PMR Speech: coherent, rrr Thought Process: L/L/GD, concrete Thought Content: Abnormal Thoughts/Perceptions: denies dissociative symptoms Homicidality / Violent Thoughts: adamantly denies HI Suicidality: +SI Hallucinations: denies AVTH Delusions: denies paranoia, persecutory, or grandiose delusions Obsessions /compulsions: None Judgment/Insight: fair/marginal/somewhat limited Mood & Affect: "bit sad" with mood-congruent, somewhat restricted/appropriate Orientation: oriented x 3 Attention/Concentration: appears intact Cognition: grossly intact Assessment: 54 yo pt with PPH of depression and anxiety presents to ED BIBA for safety, psychiatric stabilization, and possible med initiation/optimization s/p fall and passive SI Pt currently expressing acute onset SI with plan to walk into traffic s/p recent fall w/o LOC Acute safety risk remains slightly elevated and is appropriate for inpatient psychiatric admission for further safety, psychiatric stabilization, and p ossible medication optimization. Pt willing to transfer to inpt psych facility voluntarily. Consider 5150 hold for DTS ONLY if needed for transfer or if no voluntary beds are available Primary Diagnosis: Depressive disorder unspecified. R/o schizoaffective disorder Recommend VOL transfer to inpt psych facility for higher level of care 1:1 sitter is recommended Maintain suicide precautions Recommend continuation of current outpt med regimen - buspar 15 mg bid, trazodone 50 mg qhs, geodon 60 mg qd, and fluoxetine 40 mg qd Defer any psychotropic med changes to accepting inpt psych facility Risks/benefits/alternative treatments discussed, informed consent provided by pt If patient later refuses voluntary hospitalization/ requests to be discharged from ED prior to transfer or if no voluntary beds are available, please reconsult telepsych services to evaluate for 5150 hold Pt verbalized understanding and is receptive to above tx plan This case was discussed with ED nurse/provider and all parties in agreement with above tx plan Stewart Catherine MD Plan discussed with: Patient STEWART CATHERINE MD Feb 01, 2025 23:28
[2025-02-02 10:30] VITALS: PULSE 70; RESP 16; O2SAT 96
[2025-02-02 14:34] VITALS: BP 155/104; PULSE 78; RESP 20; TEMP 98.8; O2SAT 97
--- NOTE | 2025-02-02 15:30 | DVHINCON2 ---
Date of Service if different f: Feb 02, 2025 Time of Service: 14:45 Consultation ([facility]) Consulting Physician: Catalina Progress: Better Labs Laboratory Tests Test 02/01/25 15:48 02/01/25 17:51 Plasma/Serum Blood Alcohol 3.7 mg/dL (<10) Urine Opiates Screen Neg (NEGATIVE) Urine Fentanyl Screen Neg (NEGATIVE) Urine Barbiturates Screen Neg (NEGATIVE) Urine Phencyclidine Screen Neg (NEGATIVE) Urine Amphetamines Screen Neg (NEGATIVE) Urine Benzodiazepines Screen Neg (NEGATIVE) Urine Cocaine Screen Neg (NEGATIVE) Urine Cannabinoids Screen Neg (NEGATIVE) Appetite: Good Side effects of medications: No Side effects of medications: Other Appearance: Stated age Psychomotor activity: WNL Behavioral: Cooperative Eye contact: Appropriate Speech: WNL Affect: Appropriate Mood: Euthymic Thought processes: Linear/Goal-directed Thought content: WNL Suicidal ideations: Absent Homicidal ideations: Absent Orientation: Person, Place, Time Memory intact: Recent Intellect: Average Abstractability: WNL Concentration: Adequate Attention: Adequate Judgement: WNL Insight: Good Vitals Vital Signs Date Time Temp Pulse Resp B/P (MAP) Pulse Ox O2 Delivery O2 Flow Rate FiO2 02/02/25 14:34 98.8 78 20 155/104 (121) 97 98.8 02/02/25 10:30 Room Air* 0 21 Current medications Geodon 60 mg PO three times daily, Buspar 40 mg PO daily, and Prozac 40 mg PO daily. Treatment plan discussed: With staff (RN) Medication adjusted: No Labs ordered: No Type: Voluntary Diagnosis: Psychiatric: Chronic schizoaffective disorder Medical: Fall History of Present Illness Reason for Consult :Possible SI HPI : The patient is a 54-year-old single White male who lives with his sister and is currently unemployed. He carries a past psychiatric history significant for schizoaffective disorder and is currently prescribed Geodon 60 mg PO three times daily, Buspar 15 mg PO BID, Trazodone 50mg po qhs, and Prozac 40 mg PO daily. He presented to the Emergency Department after sustaining a fall. The evaluation was conducted by the securities underwriter via the telepsychiatry platform while the patient was in the ED. At the time of assessment, the patient appeared talkative, slightly restless but was able to interact appropriately with both the securities underwriter and the RN without any obvious difficulty in engagement or cooperation. He was alert, oriented, and answered questions in a coherent manner. He reported that he has been feeling better since the time of arrival and repeatedly stated that he wants to go home. He explained that he spoke with his sister, which he found reassuring, and that this conversation helped him feel calmer and more stable. He denied current depressive symptoms, including sadness, hopelessness, helplessness, or anhedonia, and adamantly denied any intention or desire to hurt himself. He denied any current suicidal ideation, plan, or intent, and denied any homicidal ideation. The patient denied auditory or visual hallucinations, and there was no evidence of delusional thinking, overt disorganization, or internal preoccupation observed during the interview. His thought process was generally coherent, organized, and goal-directed, though mildly circumstantial at times; he remained easily redirectable and maintained good behavioral control throughout the encounter. There were no signs of agitation, aggression, or impulsive behavior. He denied any recent or past use of alcohol, illicit substances, or misuse of prescription medications. His affect appeared appropriate to the content of the discussion, and he was able to articulate his thoughts and emotions clearly, demonstrating good insight into the events leading to his ED visit. Psychoeducation was provided regarding the importance of medication adherence, ongoing monitoring of mood and psychotic symptoms, and early reporting of any changes in sleep, appetite, energy, or thinking. The relationship between stress, physical health, and psychiatric stability was discussed, along with the value of maintaining regular follow-up with his outpatient psychiatric providers. The importance of sleep hygiene and the use of healthy coping st rategies to manage stress were reinforced. The patient verbalized understanding of these recommendations and expressed willingness to continue his current medication regimen and outpatient care. Ongoing coordination with the ED and medical team is recommended to ensure medical stability following the fall and to support safe discharge planning in the context of his underlying psychiatric condition. Family History: The patient denies any known family history of psychiatric illness, including mood disorders, psychotic disorders, or substance use disorders. He is not aware of any relatives with suicide attempts, completed suicide, or significant behavioral health concerns. He also denies any notable family history of neurological conditions or major hereditary medical illnesses. Past Psychiatric History: The patient has a documented history of schizoaffective disorder and is currently prescribed Geodon 60 mg PO three times daily, Buspar 40 mg PO daily, and Prozac 40 mg PO daily as part of his ongoing treatment regimen. He acknowledges a history of at least one prior inpatient psychiatric admission, though details regarding the specific circumstances and duration are limited. He denies any past suicide attempts and reports no history of self-injurious behavior. The patient denies any history of violence toward others and denies involvement in physically aggressive or threatening behavior. He also denies any prior diagnoses outside of his known schizoaffective disorder. Social / Developmental History: The patient is single and currently resides with his sister, who serves as his primary support system. He is unemployed and reports limited financial resources. He denies having access to firearms or other weapons in the home. He reports no history of service. He denies any history of physical, sexual, or emotional abuse during childhood or adulthood. He also denies any involvement with the legal system, including probation, parole, arrests, or incarceration. There is no reported history of significant developmental delays, learning difficulties, or shift supervisor rn behavioral concerns. Substance Use History: The patient denies any current or past use of alcohol, illicit substances, or misuse of prescription medications. He denies tobacco use and denies any history suggestive of substance dependence, withdrawal symptoms, or substance-related hospitalizations. He also denies involvement in substance-related legal issues or participation in rehabilitation programs. Assessment/Plan The patient is a 54-year-old single White male who lives with his sister and is currently unemployed. He has a known psychiatric history significant for chronic schizoaffective disorder and is currently prescribed Geodon 60 mg PO three times daily, Buspar 15 mg PO BID, and Prozac 40 mg PO daily. He presented to the Emergency Department after sustaining a fall, and psychiatry was consulted for evaluation of possible suicidal ideation. The evaluation was conducted by the securities underwriter via the telepsychiatry platform while the patient was in the ED. At the time of assessment, the patient denied any active suicidal ideation, homicidal ideation, auditory or visual hallucinations, or delusional thinking. He stated that he has been feeling better since speaking with his sister and expressed a strong desire to return home. His behavior was calm and cooperative, and he remained appropriately engaged throughout the interview. No evidence of internal preoccupation, disorganization, or acute psychiatric decompensation was noted. Supportive therapy and psychoeducation were provided, focusing on reinforcing coping strategies, medication adherence, and the importance of ongoing outpatien t psychiatric follow-up. The patient verbalized understanding of the recommendations and expressed willingness to continue with his current treatment plan. Legal: Voluntary (Vol) Diagnosis: Psychiatric: Chronic schizoaffective disorder Medical: Fall Plan: Continue to optimize medical management in coordination with the primary medical team. Safety plan reviewed with the patient, including reinforcement of coping skills and crisis resources. Continue all current psychiatric medications as prescribed. Upon medical stabilization, the patient may be discharged home with referral to outpatient psychiatric services for continuation of care and monitoring of s ymptoms. Thank you for this consultation. Please reconsult as needed for any changes in clinical status or additional concerns Assessment/Diagnosis/Plan Reviewed: Consults (with the pt and RN), Medications, Other WILFRIDO WALTON MD Feb 02, 2025 15:30
--- NOTE | 2025-02-02 16:06 | ED.PDOC ---
Departure 1 Departure Time of Disposition: 16:05 (Patient was re-evaluated by psychiatry and cleared patient for discharge. Patient with a chronic schizoaffective disorder. We will discharge patient home with outpatient follow up) Impression: Primary Impression: Suicidal ideation Additional Impression: Schizoaffective disorder Disposition: 01 HOME / SELF CARE / HOMELESS Condition: Stable Additional Instructions: It is important to continue to take your regular medications and follow up with the regular doctors. Discharged With: Self PAMELA BARROW MD Feb 02, 2025 16:06
== END 2025-02-02 16:49 | disposition home or self-care (01) ==
LOC: ER 15:03 → EDBD 15:03 → ER 02-02 16:49
DX: R45.851 Suicidal ideations (principal); F25.9 Schizoaffective disorder, unspecified; I10 Essential (primary) hypertension; Z79.899 Other long term (current) drug therapy
CPT/HCPCS: 36415; 80307; 80320